=== PATIENT | female | born 1945 | race African-American/Black ===

== ENCOUNTER 2016-11-18 23:45 | Emergency (ER) | payer MEDICARE, MEDICAID ==
[~2016-11-18 23:45] MED LIST: Sodium Chloride 0.9% 100 ML BAG ONE
[2016-11-19 00:18] LABS: #Eosinphils 0.7 thou/uL (0.0-0.7); #Lymphocytes 1.4 thou/uL (1.20-3.40); #Monocytes 0.5 thou/uL (0.11-0.59); #Neutrophils 5.3 thou/uL (1.40-6.50); %Basophils 0.6 % (0.0-1.0); %Eosinophils 9.3 % (0.0-10.0); %Monocytes 6.4 % (0.0-10.0); %Neutrophils 65.7 % (42.0-75.0); Hemoglobin 9.8 g/dL (12.0-16.0); Mean Corpuscular HGB CONC 31.5 g/dL (32.0-36.0); Mean Corpuscular Hemoglobin 30.8 pg (27.0-31.0); Mean Corpuscular Volume 97.6 fl (81.0-99.0); Mean Platelet Volume 6.6 fL (7.4-10.4); Platelet Count 277 thou/uL (130-400); RBC Distribution Width 13.6 % (11.5-14.5)
[2016-11-19 00:36] LABS: ALT (SGPT) Less than 6 U/L (0-55); AST (SGOT) 10 U/L (5-34); Albumin 3.4 g/dL (3.4-4.8); Alkaline Phosphatase 64 U/L (40-150); BUN (Urea Nitrogen) 25 mg/dL (9.8-20.1); Bilirubin, Total Less than 0.3 mg/dL (0.2-1.2); Calc. Creatinine Clearance 0 mL/min (70-130); Calcium 9.3 mg/dL (7.8-10.44); Carbon Dioxide 22 mmol/L (23-31); Estimated GFR-MDRD 44; Globulin 3.4 g/dL (2.4-3.5); Glucose 140 mg/dL (80-115); Protein, Total 6.8 g/dL (5.8-8.1)
[2016-11-19] MEDS ORDERED: Nitroglycerin 2% Ointment 1 INCH/1 GM Packet ONE (00:37)
[2016-11-19] MEDS ORDERED: Albuterol Sulfate 2.5 mg/0.5 ml Neb ONE ×2 (00:37→00:41)
[2016-11-19 00:38] LABS: CKMB 1.4 ng/mL (0-6.6); Troponin I Less than 0.010 ng/mL (< 0.028)
[2016-11-19 00:46] LABS: Chloride 112 mmol/L (98-107); Potassium 4.7 mmol/L (3.5-5.1); Sodium 144 mmol/L (136-145)
[2016-11-19 00:47] LABS: Anion Gap 15 mmol/L (10-20)
[2016-11-19] MEDS ORDERED: cefTRIAXone\\ROCEPHIN 1 GM VIAL ONE (01:06)
--- NOTE | 2016-11-19 08:02 | RAD ---
AP CHEST: History: 71-year-old female with history of dyspnea. Date: 11-19-16 Comparison: 09-18-15 FINDINGS: AP view chest demonstrates the lungs to be well aerated. No evidence of active intrathoracic diseas e seen. No evidence of effusions, pneumonia, or pneumothorax seen. IMPRESSION: Unremarkable AP chest. POS: [facility]
== END 2016-11-19 02:26 | disposition home or self-care (01) ==
LOC: MADERS 23:45
DX: J45.901 Unspecified asthma with (acute) exacerbation (principal); E11.9 Type 2 diabetes mellitus without complications; J44.9 Chronic obstructive pulmonary disease, unspecified; E78.5 Hyperlipidemia, unspecified; E66.9 Obesity, unspecified; I50.9 Heart failure, unspecified; I11.0 Hypertensive heart disease with heart failure; Z87.891 Personal history of nicotine dependence
CPT/HCPCS: 71010; 80053; 82553; 83880; 84484; 85025; 93005; 94640; 94644; 96365; J0696; J7050; J7611; J7620

== ENCOUNTER 2016-12-03 21:20 | Emergency (ER) | payer MEDICARE, MEDICAID ==
[~2016-12-03 21:20] MED LIST changes: +Sodium Chloride 0.9% 1,000 ML BAG ONE
[2016-12-03 22:08] LABS: #Eosinphils 0.1 thou/uL (0.0-0.7); #Lymphocytes 1.2 thou/uL (1.20-3.40); #Monocytes 0.9 thou/uL (0.11-0.59); #Neutrophils 12.2 thou/uL (1.40-6.50); %Basophils 0.3 % (0.0-1.0); %Eosinophils 0.5 % (0.0-10.0); %Lymphocytes 8.2 % (21.0-51.0); %Monocytes 6.1 % (0.0-10.0); Hemoglobin 12.3 g/dL (12.0-16.0); Mean Corpuscular HGB CONC 32.4 g/dL (32.0-36.0); Mean Corpuscular Hemoglobin 31.1 pg (27.0-31.0); Mean Platelet Volume 6.7 fL (7.4-10.4); Platelet Count 357 thou/uL (130-400); RBC Distribution Width 13.5 % (11.5-14.5); Red Blood Cell (RBC) Count 3.94 mill/uL (4.20-5.40); White Blood Cell (WBC) Count 14.4 thou/uL (4.8-10.8)
[2016-12-03 22:28] LABS: ALT (SGPT) 9 U/L (0-55); AST (SGOT) 13 U/L (5-34); Alkaline Phosphatase 73 U/L (40-150); Anion Gap 18 mmol/L (10-20); BUN (Urea Nitrogen) 59 mg/dL (9.8-20.1); Bilirubin, Total 0.3 mg/dL (0.2-1.2); CKMB 2.1 ng/mL (0-6.6); Calc. Creatinine Clearance 0 mL/min (70-130); Calcium 9.3 mg/dL (7.8-10.44); Carbon Dioxide 17 mmol/L (23-31); Chloride 101 mmol/L (98-107); Estimated GFR-MDRD 11; Globulin 3.9 g/dL (2.4-3.5); Glucose 163 mg/dL (80-115); Potassium 4.4 mmol/L (3.5-5.1); Protein, Total 7.9 g/dL (5.8-8.1); Sodium 132 mmol/L (136-145)
--- NOTE | 2016-12-03 22:33 | RAD ---
PORTABLE AP CHEST X-RAY 12/03/16 HISTORY: Chest pain. COMPARISON: 11/19/16. FINDINGS: Again noted is elevation of the left hemidiaphragm. Gas density seen beneath the left hemidiaphragm is most likely related to gas within the stomach. There is atelectasis present at the left lung base . The right lung is clear. Cardiac silhouette is magnified by projection but is at the upper limits of normal to borderline enlarged; however, the cardiac silhouette is attenuated by the patient rotat ion. No other interval change. IMPRESSION: 1. Stable mild elevation left hemidiaphragm with atelectasis at the left lung base. 2. No acute cardiopulmonary process. POS: [facility]
[2016-12-03 23:17] LABS: Blood, Urine Negative (Negative); Clarity Hazy (Clear); Glucose, Urine (Dipstick) Negative (Negative); Icto Negative (Negative); Leukocyte Small (Negative); Nitrite Negative (Negative); Protein, Urine (Dipstick) 100 mg/dL (Neg-Trace); Specific Gravity, Urine 1.025 (1.005-1.030); Urobilinogen 0.2 mg/dL (0.2-1.0); pH, Urine 5.5 (5.0-9.0)
[2016-12-03 23:18] LABS: Bilirubin Negative (Negative)
[2016-12-03] MEDS ORDERED: Ondansetron HCl/PF 4 MG/2 ML Vial ONE (23:20)
[2016-12-03 23:22] LABS: Bacteria/HPF Rare-Few HPF (None Seen); RBC/HPF 0-3 HPF (0-3)
[2016-12-03 23:23] LABS: Crystals/HPF 2+ AMORPH URATES HPF (Negative); Hyaline Casts/LPF 7-10 HYALINE CAST LPF (0-3 Hyaline); Other Casts/LPF 0-3 FINELY GRAN LPF (0-3 Hyaline)
[2016-12-03] MEDS ORDERED: cefTRIAXone\\ROCEPHIN 1 GM VIAL ONE (23:37)
== END 2016-12-03 23:52 | disposition short-term general hospital (02) ==
LOC: MADERS 21:20
DX: E86.0 Dehydration (principal); N28.9 Disorder of kidney and ureter, unspecified; N39.0 Urinary tract infection, site not specified; K56.60 Unspecified intestinal obstruction; E78.5 Hyperlipidemia, unspecified; E78.00 Pure hypercholesterolemia, unspecified; E11.9 Type 2 diabetes mellitus without complications; J45.909 Unspecified asthma, uncomplicated; J44.9 Chronic obstructive pulmonary disease, unspecified; I11.0 Hypertensive heart disease with heart failure; I50.9 Heart failure, unspecified; Z87.891 Personal history of nicotine dependence; Z79.4 Long term (current) use of insulin; Z79.899 Other long term (current) drug therapy
CPT/HCPCS: 51701; 71010; 80053; 81003; 81015; 82553; 84484; 85025; 87040; 87086; 93005; 94640; 96361; 96374; 96375; A4353; J0696; J2405; J7050; J7620

== ENCOUNTER 2016-12-30 11:30 | Outpatient (CLI) | payer MEDICARE, MEDICAID ==
[2016-12-30 12:25] LABS: #Eosinphils 0.2 thou/uL (0.0-0.7); #Lymphocytes 1.5 thou/uL (1.20-3.40); #Monocytes 0.5 thou/uL (0.11-0.59); #Neutrophils 6.7 thou/uL (1.40-6.50); %Basophils 0.4 % (0.0-1.0); %Eosinophils 1.8 % (0.0-10.0); %Lymphocytes 16.8 % (21.0-51.0); %Monocytes 5.9 % (0.0-10.0); %Neutrophils 75.2 % (42.0-75.0); Hemoglobin 10.3 g/dL (12.0-16.0); Mean Corpuscular HGB CONC 31.2 g/dL (32.0-36.0); Mean Corpuscular Hemoglobin 31.1 pg (27.0-31.0); Mean Corpuscular Volume 99.6 fl (81.0-99.0); Mean Platelet Volume 6.6 fL (7.4-10.4); Platelet Count 325 thou/uL (130-400); RBC Distribution Width 13.7 % (11.5-14.5); Red Blood Cell (RBC) Count 3.31 mill/uL (4.20-5.40); White Blood Cell (WBC) Count 8.9 thou/uL (4.8-10.8)
[2016-12-30 12:31] LABS: Hemoglobin A1c 4.9 % (4.0-6.0)
[2016-12-30 12:36] LABS: ALT (SGPT) 6 U/L (0-55); AST (SGOT) 10 U/L (5-34); Albumin 3.9 g/dL (3.4-4.8); Alkaline Phosphatase 66 U/L (40-150); Anion Gap 13 mmol/L (10-20); BUN (Urea Nitrogen) 17 mg/dL (9.8-20.1); Bilirubin, Total 0.3 mg/dL (0.2-1.2); Calc. Creatinine Clearance 0 mL/min (70-130); Calcium 9.7 mg/dL (7.8-10.44); Carbon Dioxide 26 mmol/L (23-31); Chloride 105 mmol/L (98-107); Estimated GFR-MDRD 39; Globulin 3.3 g/dL (2.4-3.5); Glucose 93 mg/dL (80-115); Potassium 4.4 mmol/L (3.5-5.1); Protein, Total 7.2 g/dL (5.8-8.1); Sodium 140 mmol/L (136-145)
== END 2016-12-30 11:31 ==
LOC: MADLABBHPM 11:30
PROVIDERS: ATTEND Family Medicine
DX: E11.8 Type 2 diabetes mellitus with unspecified complications (principal); D63.8 Anemia in other chronic diseases classified elsewhere
CPT/HCPCS: 36415; 80053; 83036; 85025

== ENCOUNTER 2017-09-26 16:51 | Outpatient (CLI) | payer MEDICARE, MEDICAID ==
--- NOTE | 2017-09-26 17:38 | RAD ---
RIGHT HIP: 09/26/17 HISTORY: Right hip pain. The exam is suboptimal. The femoral neck is not adequately positioned. There are prominent degenerati ve changes at the hip joint with joint narrowing and articular sclerosis and subchondral cystic saldaña es on both sides of the joint. No definite fracture seen on this suboptimal study. IMPRESSION: 1. Suboptimal exam due to abnormal positioning. If there is concern of hip fracture, recommend r epeat exam with adequate positioning of the femoral neck. 2. Prominent degenerative changes are noted. POS: [facility]
[2017-09-26 17:39] LABS: #Eosinphils 0.2 thou/uL (0.0-0.7); #Lymphocytes 1.6 thou/uL (1.20-3.40); #Monocytes 0.6 thou/uL (0.11-0.59); #Neutrophils 7.2 thou/uL (1.40-6.50); %Basophils 0.4 % (0.0-1.0); %Eosinophils 1.9 % (0.0-10.0); %Lymphocytes 16.6 % (21.0-51.0); %Neutrophils 75.2 % (42.0-75.0); Hemoglobin 11.3 g/dL (12.0-16.0); Mean Corpuscular HGB CONC 31.4 g/dL (32.0-36.0); Mean Corpuscular Hemoglobin 31.6 pg (27.0-31.0); Mean Corpuscular Volume 100.4 fl (81.0-99.0); Mean Platelet Volume 5.8 fL (7.4-10.4); Platelet Count 328 thou/uL (130-400); RBC Distribution Width 14.1 % (11.5-14.5); Red Blood Cell (RBC) Count 3.57 mill/uL (4.20-5.40); White Blood Cell (WBC) Count 9.5 thou/uL (4.8-10.8)
[2017-09-26 17:50] LABS: ALT (SGPT) 7 U/L (8-55); AST (SGOT) 11 U/L (5-34); Albumin 4.2 g/dL (3.4-4.8); Alkaline Phosphatase 68 U/L (40-150); Anion Gap 19 mmol/L (10-20); BUN (Urea Nitrogen) 33 mg/dL (9.8-20.1); Bilirubin, Total 0.3 mg/dL (0.2-1.2); Calc. Creatinine Clearance 0 mL/min (70-130); Calcium 10.2 mg/dL (7.8-10.44); Carbon Dioxide 19 mmol/L (23-31); Cardiac Risk 3.5 (Less than 4.5); Chloride 106 mmol/L (98-107); Cholesterol 161 mg/dl (< 200 Desired); Estimated GFR-MDRD 40; Globulin 4.5 g/dL (2.4-3.5); Glucose 119 mg/dL (83-110); HDL Cholesterol 46 mg/dL (>60 Neg Risk); LDL Cholesterol, Calculated 94 mg/dL; Potassium 4.5 mmol/L (3.5-5.1); Protein, Total 8.7 g/dL (6.0-8.3); Sodium 139 mmol/L (136-145); Triglycerides 104 mg/dL (Less than 150); Uric Acid 7.8 mg/dL (2.6-6.0)
[2017-09-26 20:15] LABS: Hemoglobin A1c 5.1 % (4.0-6.0)
== END 2017-09-26 16:52 | disposition home or self-care (01) ==
LOC: MADRAD 16:51
PROVIDERS: ATTEND Family Medicine
DX: M25.551 Pain in right hip (principal); M19.90 Unspecified osteoarthritis, unspecified site; I10 Essential (primary) hypertension; E11.8 Type 2 diabetes mellitus with unspecified complications; E78.5 Hyperlipidemia, unspecified; M16.11 Unilateral primary osteoarthritis, right hip
CPT/HCPCS: 36415; 80053; 80061; 83036; 84550; 85025

== ENCOUNTER 2018-03-17 11:45 | Emergency (ER) | payer MEDICARE, MEDICAID ==
[2018-03-17] MEDS ORDERED: Dexamethasone 4 MG TAB ONE (11:58)
--- NOTE | 2018-03-17 12:27 | RAD ---
AP VIEW CHEST: Date: 03/17/18 INDICATION: History of dyspnea. IMPRESSION: Neck soft tissues limit evaluation of the lung apices. Otherwise lungs appear clear. No definite pleu ral effusion is evident. Heart size accentuated by exam technique. Previously seen right subclavian c entral venous catheter on comparison dated 12/04/16 is no longer present. No acute osseous abnormalit y noted. POS: [facility]
[2018-03-17 12:35] LABS: #Eosinphils 0.3 thou/uL (0.0-0.7); #Lymphocytes 1.5 thou/uL (1.20-3.40); #Monocytes 0.5 thou/uL (0.11-0.59); %Basophils 0.5 % (0.0-1.0); %Eosinophils 3.6 % (0.0-10.0); %Lymphocytes 20.8 % (21.0-51.0); %Monocytes 6.3 % (0.0-10.0); %Neutrophils 68.8 % (42.0-75.0); Hemoglobin 10.6 g/dL (12.0-16.0); Mean Corpuscular HGB CONC 31.1 g/dL (32.0-36.0); Mean Corpuscular Hemoglobin 30.3 pg (27.0-31.0); Mean Corpuscular Volume 97.6 fL (78.0-98.0); Mean Platelet Volume 4.9 fL (7.4-10.4); Platelet Count 307 thou/uL (130-400); RBC Distribution Width 13.3 % (11.5-14.5); Red Blood Cell (RBC) Count 3.48 mill/uL (4.20-5.40); White Blood Cell (WBC) Count 7.2 thou/uL (4.8-10.8)
[2018-03-17 12:52] LABS: ALT (SGPT) Less than 7 U/L (8-55); AST (SGOT) 10 U/L (5-34); Albumin 3.7 g/dL (3.4-4.8); Alkaline Phosphatase 61 U/L (40-150); Anion Gap 14 mmol/L (10-20); BUN (Urea Nitrogen) 25 mg/dL (9.8-20.1); Bilirubin, Total 0.3 mg/dL (0.2-1.2); Calc. Creatinine Clearance 0 mL/min (70-130); Calcium 9.2 mg/dL (7.8-10.44); Carbon Dioxide 22 mmol/L (23-31); Chloride 110 mmol/L (98-107); Estimated GFR-MDRD 56; Globulin 3.7 g/dL (2.4-3.5); Glucose 132 mg/dL (83-110); Potassium 4.4 mmol/L (3.5-5.1); Protein, Total 7.4 g/dL (6.0-8.3); Sodium 142 mmol/L (136-145)
[2018-03-17 12:53] LABS: CKMB 0.7 ng/mL (0-6.6); Troponin I 0.013 ng/mL (< 0.028)
== END 2018-03-17 13:20 | disposition home or self-care (01) ==
LOC: MADERS 11:45
DX: J44.1 Chronic obstructive pulmonary disease with (acute) exacerbation (principal); E11.9 Type 2 diabetes mellitus without complications; E78.5 Hyperlipidemia, unspecified; I50.9 Heart failure, unspecified; I11.0 Hypertensive heart disease with heart failure; E66.9 Obesity, unspecified; Z87.891 Personal history of nicotine dependence; Z79.899 Other long term (current) drug therapy
CPT/HCPCS: 36415; 71045; 80053; 82553; 83880; 84484; 85025; 93005; J7620; J8540

== ENCOUNTER 2018-05-19 18:24 | Emergency (ER) | payer MEDICARE, MEDICAID ==
[2018-05-19 19:31] LABS: ALT (SGPT) 8 U/L (8-55); AST (SGOT) 13 U/L (5-34); Albumin 4.1 g/dL (3.4-4.8); Alkaline Phosphatase 76 U/L (40-150); Anion Gap 16 mmol/L (10-20); BUN (Urea Nitrogen) 45 mg/dL (9.8-20.1); Bilirubin, Total 0.7 mg/dL (0.2-1.2); Calc. Creatinine Clearance 0 mL/min (70-130); Calcium 10.3 mg/dL (7.8-10.44); Carbon Dioxide 18 mmol/L (23-31); Chloride 106 mmol/L (98-107); Estimated GFR-MDRD 33; Globulin 4.5 g/dL (2.4-3.5); Glucose 176 mg/dL (83-110); Lipase 19 U/L (8-78); Potassium 5.1 mmol/L (3.5-5.1); Protein, Total 8.6 g/dL (6.0-8.3); Sodium 135 mmol/L (136-145)
[2018-05-19 19:38] LABS: Band 15 % (5-11); Eosinophils 2 % (0-10); Hemoglobin 12.1 g/dL (12.0-16.0); Lymphocytes 8 % (21-51); MDiff Complete? YES; Mean Corpuscular HGB CONC 31.8 g/dL (32.0-36.0); Mean Corpuscular Volume 100.4 fL (78.0-98.0); Mean Platelet Volume 5.7 fL (7.4-10.4); Monocytes 3 % (0-10); Neutrophil 72 % (42-75); PLT Morphology Comment Appears Adequate; Platelet Count 311 thou/uL (130-400); RBC Distribution Width 12.8 % (11.5-14.5); Red Blood Cell (RBC) Count 3.78 mill/uL (4.20-5.40); White Blood Cell (WBC) Count 13.7 thou/uL (4.8-10.8)
[2018-05-19 20:48] LABS: Bilirubin Small (Negative); Blood, Urine Negative (Negative); Glucose, Urine (Dipstick) Negative (Negative); Leukocyte Negative (Negative); Nitrite Negative (Negative); Protein, Urine (Dipstick) Trace mg/dL (Neg-Trace); Urobilinogen 0.2 mg/dL (0.2-1.0)
--- NOTE | 2018-05-19 21:02 | CT ---
CT OF THE ABDOMEN AND PELVIS WITH CONTRAST: 05/19/18 COMPARISON: 11/26/16 HISTORY: Possible colostomy obstruction after eating peanuts yesterday. Abdominal pain and distention. TECHNIQUE: Multiple contiguous axial images were obtained in a CT of the abdomen and pelvis with contrast. Coron al reformats were performed. FINDINGS: The patient is status post cholecystectomy. There is a stable cyst in the left kidney. The liver, rig ht kidney, adrenal glands, spleen, and pancreas are unremarkable. No free air or free fluid are seen in the abdomen or pelvis. Stranding changes are seen surrounding t he patient's ostomy in the right lower quadrant of the abdomen. A feces sign is seen within the small bowel within the ostomy. There are dilated loops of small bowel throughout the abdomen which extend all the way to the patient's ostomy. There are calcifications in the uterus which may represent fibroids. Atherosclerotic calcifications a re seen in the aorta. No abdominal or pelvic lymphadenopathy are seen. Atelectasis is see in both lung bases. Degenerative changes are seen in the spine. IMPRESSION: There is stranding change and fecalization of the small bowel within the patient's right lower quadra nt ostomy. This could represent an obstruction of the ostomy and small bowel obstruction. POS: [facility]
[2018-05-19 21:07] LABS: Clarity Hazy (Clear)
== END 2018-05-19 22:43 | disposition short-term general hospital (02) ==
LOC: MADERS 18:24
DX: K94.03 Colostomy malfunction (principal); K56.609 Unspecified intestinal obstruction, unspecified as to partial versus complete obstruction; I11.0 Hypertensive heart disease with heart failure; I50.9 Heart failure, unspecified; E11.9 Type 2 diabetes mellitus without complications; E66.9 Obesity, unspecified; Z87.891 Personal history of nicotine dependence; Z79.899 Other long term (current) drug therapy
CPT/HCPCS: 51701; 74177; 80053; 81003; 82271; 83605; 83690; 85025; 94760; 96360; A4353

== ENCOUNTER 2018-05-28 06:35 | Emergency (ER) | payer MEDICARE, MEDICAID ==
[2018-05-28 07:32] LABS: #Eosinphils 0.2 thou/uL (0.0-0.7); #Lymphocytes 1.3 thou/uL (1.20-3.40); #Monocytes 0.7 thou/uL (0.11-0.59); #Neutrophils 10.5 thou/uL (1.40-6.50); %Basophils 0.4 % (0.0-1.0); %Eosinophils 1.4 % (0.0-10.0); %Lymphocytes 10.1 % (21.0-51.0); %Monocytes 5.6 % (0.0-10.0); %Neutrophils 82.6 % (42.0-75.0); Mean Corpuscular HGB CONC 31.8 g/dL (32.0-36.0); Mean Corpuscular Hemoglobin 31.6 pg (27.0-31.0); Mean Corpuscular Volume 99.5 fL (78.0-98.0); Mean Platelet Volume 5.5 fL (7.4-10.4); Platelet Count 331 thou/uL (130-400); RBC Distribution Width 13.9 % (11.5-14.5); Red Blood Cell (RBC) Count 3.17 mill/uL (4.20-5.40); White Blood Cell (WBC) Count 12.7 thou/uL (4.8-10.8)
[2018-05-28 07:50] LABS: ALT (SGPT) 14 U/L (8-55); AST (SGOT) 24 U/L (5-34); Albumin 3.5 g/dL (3.4-4.8); Alkaline Phosphatase 56 U/L (40-150); Anion Gap 10 mmol/L (10-20); BUN (Urea Nitrogen) 7 mg/dL (9.8-20.1); Bilirubin, Total 0.5 mg/dL (0.2-1.2); CK (CPK) 91 U/L (29-168); Calc. Creatinine Clearance 0 mL/min (70-130); Calcium 8.7 mg/dL (7.8-10.44); Carbon Dioxide 26 mmol/L (23-31); Chloride 108 mmol/L (98-107); Estimated GFR-MDRD 53; Globulin 3.7 g/dL (2.4-3.5); Glucose 152 mg/dL (83-110); Potassium 3.5 mmol/L (3.5-5.1); Protein, Total 7.2 g/dL (6.0-8.3); Sodium 140 mmol/L (136-145)
[2018-05-28 07:50] LABS: Bilirubin Negative (Negative); Blood, Urine Negative (Negative); Clarity Clear (Clear); Glucose, Urine (Dipstick) Negative (Negative); Leukocyte Negative (Negative); Nitrite Negative (Negative); Protein, Urine (Dipstick) Trace mg/dL (Neg-Trace); Urobilinogen 0.2 mg/dL (0.2-1.0)
--- NOTE | 2018-05-28 07:51 | CT ---
NONCONTRAST HEAD CT: COMPARISON: 11/25/05. TECHNIQUE: Noncontrast head CT is performed from the skull base to the skull vertex. FINDINGS: The examination is limited by motion degradation. No parenchymal hemorrhage. No extraaxial hematoma . No midline shift. Basilar cisterns are patent. Age-appropriate brain volume. Cortical ramos-whit e matter differentiation is preserved. The ventricles and sulci are patent and symmetric. Calvarium is intact. Adequate aeration of the sinuses and mastoid air cells. Cavernous carotid athe rosclerosis is noted. IMPRESSION: Limited evaluation due to motion degradation. No acute intracranial process. POS: [facility]
[2018-05-28 07:52] LABS: Troponin I Less than 0.010 ng/mL (< 0.028)
--- NOTE | 2018-05-28 07:54 | RAD ---
PORTABLE UPRIGHT FRONTAL CHEST RADIOGRAPH: Date: 05/28/18 COMPARISON: 03/17/18. HISTORY: Syncope. FINDINGS: Mild diffuse increased linear interstitial density with pulmonary hyperinflation noted, stable. Stabl e atherosclerotic calcification of the aortic arch. No pneumothorax, pleural fluid, focal consolidati on, or alveolar edema. IMPRESSION: No acute findings. POS: [facility]
[2018-05-28 08:03] LABS: Amphetamine Not Detected (NotDetected); Barbiturates Screen Not Detected (NotDetected); Benzodiazepine Screen Not Detected (NotDetected); Cocaine Metabolite Screen Not Detected (NotDetected); Medtox Control Line Valid? VALID (VALID); Methadone Not Detected (NotDetected); Methamphetamine Not Detected (NotDetected); Opiate Screen Not Detected (NotDetected); Oxycodone Screen Not Detected (NotDetected); Phencyclidine (PCP) Not Detected (NotDetected); THC/Cannabinoid Screen Not Detected (NotDetected); Tricyclic Screen Not Detected (NotDetected)
== END 2018-05-28 09:40 | disposition short-term general hospital (02) ==
LOC: MADERS 06:35
DX: R55 Syncope and collapse (principal); R09.02 Hypoxemia; E11.9 Type 2 diabetes mellitus without complications; I11.0 Hypertensive heart disease with heart failure; I50.9 Heart failure, unspecified; Z87.891 Personal history of nicotine dependence; Z79.899 Other long term (current) drug therapy
CPT/HCPCS: 36416; 70450; 71045; 80053; 80306; 81003; 82553; 83880; 84484; 85025; 85379; 93005

== ENCOUNTER 2019-03-12 11:10 | Emergency (ER) | payer MEDICARE, MEDICAID ==
[~2019-03-12 11:10] MED LIST changes: -Sodium Chloride 0.9% 100 ML BAG ONE
[2019-03-12 12:26] LABS: #Basophils 0.1 thou/uL (0.0-0.2); #Eosinphils 0.1 thou/uL (0.0-0.7); #Lymphocytes 1.4 thou/uL (1.20-3.40); #Monocytes 0.8 thou/uL (0.11-0.59); #Neutrophils 12.6 thou/uL (1.40-6.50); %Basophils 0.6 % (0.0-1.0); %Eosinophils 0.8 % (0.0-10.0); %Lymphocytes 9.4 % (21.0-51.0); %Neutrophils 84.3 % (42.0-75.0); Hemoglobin 9.6 g/dL (12.0-16.0); Mean Corpuscular HGB CONC 30.1 g/dL (32.0-36.0); Mean Corpuscular Hemoglobin 30.2 pg (27.0-31.0); Mean Corpuscular Volume 100.6 fL (78.0-98.0); Mean Platelet Volume 4.9 fL (7.4-10.4); Platelet Count 280 thou/uL (130-400); RBC Distribution Width 14.8 % (11.5-14.5); Red Blood Cell (RBC) Count 3.19 mill/uL (4.20-5.40)
[2019-03-12 12:34] LABS: Bilirubin Negative (Negative); Blood, Urine Negative (Negative); Clarity Clear (Clear); Glucose, Urine (Dipstick) Negative (Negative); Leukocyte Negative (Negative); Nitrite Negative (Negative); Protein, Urine (Dipstick) Negative (Neg-Trace); Urobilinogen 0.2 mg/dL (Less than 2)
[2019-03-12 12:41] LABS: ALT (SGPT) 7 U/L (8-55); AST (SGOT) 8 U/L (5-34); Albumin 3.8 g/dL (3.4-4.8); Alkaline Phosphatase 70 U/L (40-150); Anion Gap 13 mmol/L (10-20); BUN (Urea Nitrogen) 31 mg/dL (9.8-20.1); Bilirubin, Total 0.4 mg/dL (0.2-1.2); Calc. Creatinine Clearance 0 mL/min (70-130); Calcium 8.9 mg/dL (7.8-10.44); Carbon Dioxide 19 mmol/L (23-31); Chloride 112 mmol/L (98-107); Estimated GFR-MDRD 36; Globulin 3.8 g/dL (2.4-3.5); Glucose 119 mg/dL (83-110); Potassium 5.5 mmol/L (3.5-5.1); Protein, Total 7.6 g/dL (6.0-8.3); Sodium 138 mmol/L (136-145)
[2019-03-12] MEDS ORDERED: Acetaminophen 500 MG TAB ONE (12:57)
[2019-03-12] MEDS ORDERED: Dextrose 50% Abboject 50 ML SYRINGE ONE (13:09)
--- NOTE | 2019-03-12 13:52 | RAD ---
EXAM: Single view of the chest HISTORY: Fever and weakness COMPARISON: 05/28/2018 FINDINGS: Single view of the chest shows a normal sized cardiomediastinal silhouette. There is no analisa dence of consolidation, mass, or pleural effusion. Degenerative changes are seen in the spine. IMPRESSION: No evidence of acute cardiopulmonary disease
== END 2019-03-12 18:15 | disposition short-term general hospital (02) ==
LOC: MADERS 11:10
DX: E87.5 Hyperkalemia (principal); R50.9 Fever, unspecified; I11.0 Hypertensive heart disease with heart failure; E66.9 Obesity, unspecified; I50.9 Heart failure, unspecified; E11.9 Type 2 diabetes mellitus without complications; E78.5 Hyperlipidemia, unspecified; J44.9 Chronic obstructive pulmonary disease, unspecified; Z87.891 Personal history of nicotine dependence; Z79.899 Other long term (current) drug therapy; Z79.51 Long term (current) use of inhaled steroids
CPT/HCPCS: 36415; 71045; 80053; 81003; 83605; 83880; 84484; 85025; 87040; 87086; 93005; 96374; 96375; A4353; J7050

== ENCOUNTER 2019-10-04 10:56 | Emergency (ER) | payer MEDICARE, MEDICAID ==
[2019-10-04 12:38] LABS: #Basophils 0.1 thou/uL (0.0-0.2); #Eosinphils 0.2 thou/uL (0.0-0.7); #Lymphocytes 1.7 thou/uL (1.20-3.40); #Monocytes 0.7 thou/uL (0.11-0.59); #Neutrophils 6.6 thou/uL (1.40-6.50); %Basophils 0.6 % (0.0-1.0); %Eosinophils 2.5 % (0.0-10.0); %Lymphocytes 18.7 % (21.0-51.0); %Monocytes 7.5 % (0.0-10.0); %Neutrophils 70.8 % (42.0-75.0); Hemoglobin 9.9 g/dL (12.0-16.0); MDiff Complete? YES; Macrocytosis SLIGHT = 6-15 cells (100X) (0-5/hpf); Mean Corpuscular HGB CONC 28.6 g/dL (32.0-36.0); Mean Corpuscular Hemoglobin 29.6 pg (27.0-31.0); Mean Corpuscular Volume 103.5 fL (78.0-98.0); Mean Platelet Volume 6.3 fL (7.4-10.4); Platelet Count 268 thou/uL (130-400); RBC Distribution Width 14.5 % (11.5-14.5); Red Blood Cell (RBC) Count 3.34 mill/uL (4.20-5.40); White Blood Cell (WBC) Count 9.3 thou/uL (4.8-10.8)
--- NOTE | 2019-10-04 12:49 | RAD ---
PORTABLE CHEST: HISTORY: Dyspnea. COMPARISON: 03/12/2019. FINDINGS: Limited evaluation due to portable technique and soft tissue attenuation. There is a suggestion of a patchy infiltrate in the left lower lung, although this may be overlying shadows. Vascular intersti tial markings are accentuated by the decreased exposure and soft tissue attenuation. IMPRESSION: Suboptimal exam due to patient body habitus and portable technique. Recommend PA and lateral views o f the chest to better evaluate. A left basilar infiltrate is not excluded. POS: [facility]
[2019-10-04 12:55] LABS: ALT (SGPT) Less than 7 U/L (8-55); AST (SGOT) 5 U/L (5-34); Albumin 3.8 g/dL (3.4-4.8); Alkaline Phosphatase 70 U/L (40-110); Anion Gap 15 mmol/L (10-20); BUN (Urea Nitrogen) 68 mg/dL (9.8-20.1); Bilirubin, Total 0.3 mg/dL (0.2-1.2); Calc. Creatinine Clearance 0 mL/min (70-130); Carbon Dioxide 14 mmol/L (23-31); Chloride 115 mmol/L (98-107); Estimated GFR-MDRD 14; Globulin 4.3 g/dL (2.4-3.5); Glucose 104 mg/dL (83-110); Potassium 6.1 mmol/L (3.5-5.1); Protein, Total 8.1 g/dL (6.0-8.3); Sodium 138 mmol/L (136-145)
[2019-10-04] MEDS ORDERED: cefTRIAXone\\ROCEPHIN 1 GM VIAL ONE (14:22)
[2019-10-04] MEDS ORDERED: Azithromycin 500 MG VIAL ONE (14:22)
[2019-10-04] MEDS ORDERED: methylPREDNISolone Sod Succ/PF 125 MG/2 ML VIAL ONE (14:22)
[2019-10-04] MEDS ORDERED: Sodium Chloride 0.9% 100 ML ONE (14:23)
[2019-10-04] MEDS ORDERED: Sodium Chloride 0.9% 250 ML 250 ML ONE (14:23)
[2019-10-04] MEDS ORDERED: Sodium Chloride 0.9% 1,000 ML ONE (14:48)
[2019-10-04] MEDS ORDERED: Albuterol Sulfate 2.5 mg/3 ml Neb ONE (14:48)
[2019-10-04 15:20] LABS: Anion Gap 15 mmol/L (10-20); BUN (Urea Nitrogen) 71 mg/dL (9.8-20.1); Calc. Creatinine Clearance 0 mL/min (70-130); Calcium 9.1 mg/dL (7.8-10.44); Carbon Dioxide 14 mmol/L (23-31); Chloride 116 mmol/L (98-107); Estimated GFR-MDRD 15; Glucose 99 mg/dL (83-110); Sodium 139 mmol/L (136-145)
== END 2019-10-04 16:20 | disposition short-term general hospital (02) ==
LOC: MADERS 10:56
DX: J44.1 Chronic obstructive pulmonary disease with (acute) exacerbation (principal); N17.9 Acute kidney failure, unspecified; E87.5 Hyperkalemia; I11.0 Hypertensive heart disease with heart failure; I50.9 Heart failure, unspecified; E11.9 Type 2 diabetes mellitus without complications; E78.5 Hyperlipidemia, unspecified; E78.00 Pure hypercholesterolemia, unspecified; E66.9 Obesity, unspecified; Z87.891 Personal history of nicotine dependence; Z79.899 Other long term (current) drug therapy; Z79.51 Long term (current) use of inhaled steroids
CPT/HCPCS: 36415; 71045; 80053; 83605; 83880; 84484; 85025; 87040; 87149; 93005; 94640; 94760; 96365; 96367; 96375; J0456; J0696; J2930; J3490; J7050; J7611; J7620

== ENCOUNTER 2019-10-11 04:53 | Emergency (ER) | payer MEDICARE, MEDICAID ==
[2019-10-11] MEDS ORDERED: Ondansetron ODT 4 MG TAB ONE (05:39)
[2019-10-11 06:07] LABS: #Eosinphils 0.5 thou/uL (0.0-0.7); #Lymphocytes 1.2 thou/uL (1.20-3.40); #Monocytes 0.5 thou/uL (0.11-0.59); #Neutrophils 9.1 thou/uL (1.40-6.50); %Basophils 0.3 % (0.0-1.0); %Eosinophils 4.2 % (0.0-10.0); %Lymphocytes 10.6 % (21.0-51.0); %Monocytes 4.7 % (0.0-10.0); %Neutrophils 80.2 % (42.0-75.0); Hemoglobin 9.7 g/dL (12.0-16.0); Mean Corpuscular HGB CONC 29.3 g/dL (32.0-36.0); Mean Corpuscular Hemoglobin 29.3 pg (27.0-31.0); Mean Corpuscular Volume 100.1 fL (78.0-98.0); Mean Platelet Volume 6.2 fL (7.4-10.4); Platelet Count 238 thou/uL (130-400); RBC Distribution Width 14.5 % (11.5-14.5); Red Blood Cell (RBC) Count 3.32 mill/uL (4.20-5.40); White Blood Cell (WBC) Count 11.4 thou/uL (4.8-10.8)
[2019-10-11 06:25] LABS: ALT (SGPT) 7 U/L (8-55); AST (SGOT) 9 U/L (5-34); Albumin 3.6 g/dL (3.4-4.8); Alkaline Phosphatase 67 U/L (40-110); Anion Gap 13 mmol/L (10-20); BUN (Urea Nitrogen) 18 mg/dL (9.8-20.1); Bilirubin, Total 0.4 mg/dL (0.2-1.2); Calc. Creatinine Clearance 0 mL/min (70-130); Calcium 8.8 mg/dL (7.8-10.44); Carbon Dioxide 19 mmol/L (23-31); Chloride 113 mmol/L (98-107); Estimated GFR-MDRD 42; Globulin 3.9 g/dL (2.4-3.5); Glucose 141 mg/dL (83-110); Protein, Total 7.5 g/dL (6.0-8.3); Sodium 141 mmol/L (136-145)
--- NOTE | 2019-10-11 07:11 | CT ---
PRELIMINARY REPORT/[facility]/EMERGENCY AFTER HOURS PROCEDURE: EXAM: CT Head Without Intravenous Contrast. CLINICAL HISTORY: Supposedly had a seizure earlier this morning; fell out of bed; no injury; no pain, no loc; no complaints; h/o seizures; not on any kind of seizure medication TECHNIQUE: Axial computed tomography images of the head/brain without intravenous contrast. COMPARISON: None provided. FINDINGS: BRAIN: No intracranial hemorrhage. Mild cerebral atrophy. Small colloid cyst measuring 4 mm. Mild per iventricular hypodensities due to small vessel ischemic disease. VENTRICLES: No hydrocephalus. ORBITS: The orbits are unremarkable. SINUSES AND MASTOIDS: The paranasal sinuses and mastoid air cells are clear. SOFT TISSUES: No significant facial or scalp soft tissue swelling evident. No radiopaque foreign body is seen. BONES: No acute skull fracture. IMPRESSION: No acute intracranial abnormality. ELECTRONICALLY SIGNED BY: Soraya Dc MD Oct 11, 2019 6:16:53 AM [facility] FINAL REPORT EMERGENCY AFTER-HOURS STUDY CT BRAIN NONCONTRAST: DATE: 10/11/2019. HISTORY: 73-year-old female status post seizure resulting in fall, head trauma. FINDINGS: There is no evidence of acute intra-axial or extra-axial hemorrhage. There is no midline shift or any other mass effect. There is no extra-axial fluid collection. There is no evidence of obstructive hydrocephalus. Calvarium is intact. Approximately 6 mm hyperdense mass at midline at foramen of Monro . Agree with preliminary report by [facility]. IMPRESSION: 1. No acute intracranial findings. 2. Colloid cyst. Transcribed Date/Time: 10/11/2019 7:53 AM
--- NOTE | 2019-10-11 07:15 | RAD ---
RADIOGRAPH CHEST 1 VIEW: DATE: 10/11/2019 HISTORY: 74-year-old female status post syncope and seizure. Concern for aspiration. FINDINGS: The thoracic aorta is tortuous and ectatic. There is no evidence of airspace density, pulmonary edema , or pneumothorax. The lateral costophrenic angles are not effaced. No cardiomegaly. IMPRESSION: 1) No acute pulmonary findings. 2) ectasia of thoracic aorta.
== END 2019-10-11 08:05 | disposition home or self-care (01) ==
LOC: MADERS 04:53
DX: D64.9 Anemia, unspecified (principal); I11.0 Hypertensive heart disease with heart failure; I50.9 Heart failure, unspecified; E78.5 Hyperlipidemia, unspecified; E11.9 Type 2 diabetes mellitus without complications; E78.00 Pure hypercholesterolemia, unspecified; J44.9 Chronic obstructive pulmonary disease, unspecified; E66.9 Obesity, unspecified; Z87.891 Personal history of nicotine dependence; Z79.891 Long term (current) use of opiate analgesic; W06.XXXA Fall from bed, initial encounter
CPT/HCPCS: 70450; 71045; 80053; 85025; Q0162

== ENCOUNTER 2019-11-30 15:22 | Inpatient (IN) | payer MEDICARE, MEDICAID ==
[2019-11-30] MEDS ORDERED: Ondansetron PF 4 MG/2 ML Vial IVP PRN (15:27)
[2019-11-30 16:14] VITALS: BMI 36.2
[2019-11-30] MEDS ORDERED: Enoxaparin Sodium 30 MG/0.3 ML SYRINGE SC SCH (16:45)
--- NOTE | 2019-11-30 17:15 | RAD ---
RADIOGRAPH CHEST 1 VIEW: DATE: 11/30/2019 HISTORY: 74-year-old female with COPD exacerbation. FINDINGS: Hypoinflated lungs. Prominent interstitial markings. The thoracic aorta is tortuous and ectatic. Ther e is no evidence of airspace density, pulmonary edema, or pneumothorax. The lateral costophrenic angles are not effaced. IMPRESSION: 1) No acute pulmonary findings. 2) ectasia of thoracic aorta.
[2019-11-30 18:20] LABS: #Eosinphils 0.2 thou/uL (0.0-0.7); #Lymphocytes 1.7 thou/uL (1.20-3.40); #Monocytes 0.9 thou/uL (0.11-0.59); #Neutrophils 10.1 thou/uL (1.40-6.50); %Basophils 0.3 % (0.0-1.0); %Eosinophils 1.8 % (0.0-10.0); %Lymphocytes 12.8 % (21.0-51.0); %Neutrophils 78.1 % (42.0-75.0); Hemoglobin 10.1 g/dL (12.0-16.0); Mean Corpuscular HGB CONC 30.5 g/dL (32.0-36.0); Mean Corpuscular Hemoglobin 30.7 pg (27.0-31.0); Mean Corpuscular Volume 100.7 fL (78.0-98.0); Mean Platelet Volume 6.3 fL (7.4-10.4); Platelet Count 270 thou/uL (130-400); RBC Distribution Width 14.7 % (11.5-14.5); Red Blood Cell (RBC) Count 3.28 mill/uL (4.20-5.40)
[2019-11-30 18:21] LABS: ALT (SGPT) Less than 7 U/L (8-55); AST (SGOT) 8 U/L (5-34); Albumin 3.4 g/dL (3.4-4.8); Alkaline Phosphatase 68 U/L (40-110); Anion Gap 20 mmol/L (10-20); BUN (Urea Nitrogen) 28 mg/dL (9.8-20.1); Bilirubin, Total 0.7 mg/dL (0.2-1.2); Calc. Creatinine Clearance 16 mL/min (70-130); Calcium 8.6 mg/dL (7.8-10.44); Carbon Dioxide 26 mmol/L (23-31); Chloride 100 mmol/L (98-107); Estimated GFR-MDRD 11; Globulin 4.1 g/dL (2.4-3.5); Glucose 113 mg/dL (83-110); Potassium 3.9 mmol/L (3.5-5.1); Protein, Total 7.5 g/dL (6.0-8.3); Sodium 142 mmol/L (136-145)
[2019-11-30] MEDS ORDERED: Sodium Chloride 0.9% 500 ML IVPB SCH (19:00)
[2019-11-30] MEDS: Mometasone/Formoterol 200/5 60 PUFF INH SCH (20:33)
[2019-11-30] MEDS: Gabapentin 300 MG CAP PO SCH (20:35)
[2019-11-30] MEDS: Atorvastatin Calcium 10 MG TAB PO SCH (20:35)
[2019-11-30] MEDS: levETIRAcetam 500 MG TAB PO SCH (20:36)
[2019-11-30] MEDS: Heparin 5,000 UNITS/ML VIAL SC SCH (21:24)
[2019-11-30] MEDS: Acetaminophen 325 MG TAB PO PRN (21:57)
[2019-11-30] MEDS: Nystatin Powder 15 GM BOT TOP PRN (23:16)
[2019-12-01] MEDS: Acetaminophen 325 MG TAB PO PRN ×3 (03:33→15:50)
[2019-12-01 03:55] LABS: Bilirubin Small (Negative); Blood, Urine Negative (Negative); Clarity Cloudy (Clear); Glucose, Urine (Dipstick) Negative (Negative); Leukocyte Negative (Negative); Nitrite Negative (Negative); Protein, Urine (Dipstick) 30 mg/dL (Neg-Trace); Urobilinogen 0.2 mg/dL (Less than 2)
[2019-12-01 03:56] LABS: Urine Culture Reflex No No
[2019-12-01 03:58] LABS: Bacteria/HPF Rare-Few HPF (None Seen); RBC/HPF None Seen HPF (0-3); Squamous Epithelial 0-3 HPF (0-3); WBC/HPF 0-3 HPF (0-3)
[2019-12-01 05:51] LABS: Anion Gap 17 mmol/L (10-20); BUN (Urea Nitrogen) 29 mg/dL (9.8-20.1); Calc. Creatinine Clearance 15 mL/min (70-130); Calcium 7.9 mg/dL (7.8-10.44); Carbon Dioxide 22 mmol/L (23-31); Chloride 104 mmol/L (98-107); Estimated GFR-MDRD 10; Glucose 86 mg/dL (83-110); Potassium 3.6 mmol/L (3.5-5.1); Sodium 139 mmol/L (136-145)
[2019-12-01 07:35] LABS: Mean Corpuscular HGB CONC 29.2 g/dL (32.0-36.0); Mean Corpuscular Hemoglobin 29.8 pg (27.0-31.0); Mean Corpuscular Volume 102.3 fL (78.0-98.0); Mean Platelet Volume 7.3 fL (7.4-10.4); Platelet Count 266 thou/uL (130-400); RBC Distribution Width 14.7 % (11.5-14.5); Red Blood Cell (RBC) Count 3.03 mill/uL (4.20-5.40); White Blood Cell (WBC) Count 10.7 thou/uL (4.8-10.8)
[2019-12-01] MEDS: predniSONE 20 MG TAB PO SCH (07:58)
[2019-12-01 07:59] LABS: Anisocytosis SLIGHT = 6-15 cells (100X) (0-5/hpf); Band 2 % (5-11); Lymphocytes 20 % (21-51); MDiff Complete? YES; Manual Diff?? YES; Monocytes 4 % (0-10); Neutrophil 74 % (42-75)
[2019-12-01 08:00] LABS: Platelet Morphology Comment Appears Adequate
[2019-12-01] MEDS: Mometasone/Formoterol 200/5 60 PUFF INH SCH ×2 (08:01→20:58)
[2019-12-01] MEDS: Heparin 5,000 UNITS/ML VIAL SC SCH ×3 (09:56→21:03)
[2019-12-01] MEDS: Gabapentin 300 MG CAP PO SCH ×2 (09:57→21:03)
[2019-12-01] MEDS: levETIRAcetam 500 MG TAB PO SCH ×2 (09:57→21:03)
[2019-12-01] MEDS: Sodium Chloride 0.9% 1,000 ML IV SCH ×2 (09:57→21:12)
[2019-12-01] MEDS: Nystatin Powder 15 GM BOT TOP PRN (09:58)
--- NOTE | 2019-12-01 10:01 | HP ---
ADMITTING ATTENDING/PRIMARY CARE PROVIDER: Kelly Rodriguez MD HISTORY OF PRESENT ILLNESS: Patient is a 74-year-old female with history of seizure disorder as well as COPD and diastolic heart failure, who presents as a direct admission from clinic. The patient has a history of recent ER evaluation for seizures related to medication noncompliance. The patient was brought to the clinic by a family friend, who stated that patient has been reporting generalized weakness and soreness since these seizures several days ago. On evaluation in the clinic, the patient had blood pressure of 80/48 as well as an oxygen saturation of 71% on room air. She was given a breathing treatment and subsequently oxygenation improved at 80%. The patient was given supplemental oxygen and the decision was made to admit patient to the hospital due to concern for COPD exacerbation, hypotension, and generalized weakness. PAST MEDICAL HISTORY: 1. Heart failure with preserved ejection fraction. 2. COPD. 3. Seizure disorder. 4. CKD stage 3. 5. Anemia of chronic disease. 6. Morbid obesity. 7. Gastroesophageal reflux disease. 8. Hypertension. 9. Hyperlipidemia. 10. Chronic pain. MEDICATIONS: 1. Ventolin HFA 108 mcg per actuation q.4 hours p.r.n. 2. Furosemide 40 mg daily. 3. Symbicort 160-4.5 mcg per actuation 2 puffs b.i.d. 4. Keppra 500 mg p.o. b.i.d. 5. Carvedilol 12.5 mg p.o. b.i.d. 6. Amlodipine 10 mg p.o. daily. 7. Tramadol 50 mg q.8 hours p.r.n. 8. Valsartan 160 mg p.o. daily. 9. Gabapentin 300 mg p.o. b.i.d. 10. Tylenol Extra Strength 500 mg q.6 hours p.r.n. ALLERGIES: NO KNOWN DRUG ALLERGIES. PAST SURGICAL HISTORY: 1. Ileostomy/colostomy. 2. ORIF of right patellar fracture. FAMILY HISTORY: Noncontributory. SOCIAL HISTORY: The patient lives at home with her sisters and one of her sister's partners. She does have home health that comes to the house. The patient is a former smoker. Denies drug and alcohol use. REVIEW OF SYSTEMS: GENERAL: Patient reports generalized weakness. She denies fevers or chills. HEENT: Patient denies nasal congestion, runny nose, or eye problems. CARDIOVASCULAR: Patient denies chest pain, palpitations. RESPIRATORY: Patient reports cough. Denies shortness of breath. ABDOMEN: Patient denies nausea, vomiting, diarrhea. SKIN: Patient denies rashes or lesions. MUSCULOSKELETAL: Patient reports back pain. NEUROLOGICAL: Patient denies focal weakness. She does report frontal headache. PSYCHIATRIC: Patient denies anxiety and depression. PHYSICAL EXAMINATION: VITALS: Temperature 100.1, pulse 88, respirations 18, oxygen 95% on 2 L, blood pressure 98/62. GENERAL: Patient is alert and oriented x3, in no distress. HEENT: Eyes, extraocular muscles intact. Conjunctiva clear. Oral cavity, moist mucous membranes. CARDIOVASCULAR: Regular rate and rhythm with no murmurs, rubs, or gallops. LUNGS: Diffuse wheezing heard throughout. No use of accessory muscles of respiration. ABDOMEN: Soft, nontender to palpation. No organomegaly or distention noted. Patient has ileostomy in place. EXTREMITIES: Patient moves all extremities well. No clubbing, cyanosis, or edema. NEUROLOGICAL: Cranial nerves 2 through 12 intact. No focal weakness. Strength 4/5 throughout. SKIN: Patient has redness and irritation noted under her pannus and under breast folds. No ulcerations noted. ASSESSMENT AND PLAN: Patient is a 74-year-old female with a history of chronic obstructive pulmonary disease, now with hypoxia and history of diastolic heart failure and seizure disorder, being admitted for inpatient evaluation. 1. Acute hypoxic respiratory failure. 2. Chronic obstructive pulmonary disease exacerbation. 3. Possible diastolic heart failure exacerbation. 4. Seizure disorder. 5. Chronic kidney disease. 6. Hypertension. 7. Hyperlipidemia. 8. Anemia of chronic disease. 9. Hypotension. PLAN: We will admit patient to the hospital as an inpatient. Continue supplemental oxygen and wean as tolerated. We will schedule nebulizer treatments and resume patient's home inhalers. Chest x-ray has been ordered and results are pending at the time of initial evaluation. Labs ordered as follows; basic metabolic panel, brain natriuretic peptide, CBC all pending at the time of evaluation. We also ordered p.o. steroids to hopefully help with patient's respiratory status. Physical therapy, occupational therapy, and speech therapy ordered with patient's history of generalized weakness. We will resume patient's seizure medications. Patient is placed on seizure precautions. Home antihypertensives have been held and will be restarted as patient's blood pressure responds. Concern was brought by Nursing for patient's situation at home. While they were assessing and bathing patient, patient was noted to have napkins under her skin folds and was noted to be very malodorous and concern was brought for patient's level of care. Patient's home health nurses did call [facility] and also did make a note to place a call to patient's home health service provider line to assess the home situation. We will also reach out to Case Management for assistance with this process of evaluating patient's home status. DVT prophylaxis, heparin. CODE STATUS: Full code and this decision was made by patient at the bedside. LENGTH OF STAY: Likely to be greater than 2 midnights. Job ID: [id number]
[2019-12-01 11:29] LABS: Creatinine, Urine Greater than 430.00 mg/dL (47-110); Sodium, Urine Less than 20 mmol/L (Not Available)
[2019-12-01] MEDS ORDERED: Amoxicillin/Potassium Clav 875 MG TAB PO SCH (12:30)
--- NOTE | 2019-12-01 15:48 | PRG ---
DATE OF SERVICE: 12/01/2019 SUBJECTIVE: The patient was seen and examined at the bedside. The patient does report improvement in her symptoms compared to admission. She denies shortness of breath or cough at this time. She still is requiring supplemental oxygen. No adverse events overnight. The patient denies any chest pain or abdominal pain. OBJECTIVE: VITAL SIGNS: Temperature 98.1, pulse 74, respirations 16, oxygen 95% on 3 L nasal cannula, and blood pressure 114/62. GENERAL: The patient is alert and oriented to person and place. She does have some difficulty with the date. HEENT: Normocephalic, atraumatic. Extraocular muscles intact. Moist mucous membranes. CARDIOVASCULAR: Regular rate and rhythm with no murmurs, rubs, or gallops. LUNGS: Mostly clear to auscultation. Faint wheezes heard, improvement noted compared to prior examination. EXTREMITIES: No peripheral edema noted. SKIN: No rashes or lesions. NEUROLOGIC: Cranial nerves 2 through 12 intact grossly. PSYCHIATRIC: Appropriate mood and affect. LABORATORY AND DIAGNOSTIC DATA: CBC shows a white blood cell count of 10.7, hemoglobin 9.0, hematocrit 31.0, MCV 102.3, platelet count 266. BMP; sodium 139, potassium 3.6, chloride 104, carbon dioxide 22, BUN 29, creatinine 5.09, glucose 86, and calcium 7.9. Procalcitonin 0.22. Chest x-ray showed no acute pulmonary findings. Ectasia of the thoracic aorta. ASSESSMENT AND PLAN: 1. Acute hypoxic respiratory failure, improving with supplemental oxygen. We will wean as tolerated. 2. Chronic obstructive pulmonary disease exacerbation, see #1. We will space out the patient's nebulizer treatments from q.4 to q.6 for the remainder of the day and then hopefully tonight change to p.r.n. We will also add on p.o. antibiotics. Continue p.o. steroids as well. 3. Seizure disorder. Continue home Keppra. 4. Acute on chronic kidney disease. The patient did receive 500 mL bolus of fluid yesterday. The patient's fractional excretion of sodium was approximately 0.2% suggesting a prerenal etiology. We will continue maintenance fluids throughout the day. We will repeat a BMP later today. Hopefully, this will show some improvement in her kidney function. 5. Volume depletion, see above. 6. Hypertension. We will continue to hold the patient's home antihypertensives until blood pressure improves. 7. Hyperlipidemia. Resume home medications. 8. Anemia of chronic disease, likely related to chronic kidney disease to some degree, however, may also be nutritional. We will add on folate and B12 to the patient's labs to evaluate for macrocytosis given MCV of 102. 9. Generalized weakness. Continue physical therapy and occupational therapy. 10. Deep venous thrombosis prophylaxis: Heparin. Job ID: [id number]
[2019-12-01 17:16] LABS: Anion Gap 18 mmol/L (10-20); BUN (Urea Nitrogen) 37 mg/dL (9.8-20.1); Calc. Creatinine Clearance 15 mL/min (70-130); Calcium 7.8 mg/dL (7.8-10.44); Carbon Dioxide 25 mmol/L (23-31); Chloride 101 mmol/L (98-107); Estimated GFR-MDRD 10; Glucose 234 mg/dL (83-110); Potassium 4.2 mmol/L (3.5-5.1); Sodium 140 mmol/L (136-145)
[2019-12-01] MEDS: Amoxicillin/Potassium Clav 875 MG TAB PO SCH (21:03)
[2019-12-01] MEDS: Atorvastatin Calcium 10 MG TAB PO SCH (21:03)
[2019-12-02 06:11] LABS: Anion Gap 16 mmol/L (10-20); BUN (Urea Nitrogen) 40 mg/dL (9.8-20.1); Calc. Creatinine Clearance 19 mL/min (70-130); Calcium 8.1 mg/dL (7.8-10.44); Carbon Dioxide 23 mmol/L (23-31); Chloride 104 mmol/L (98-107); Estimated GFR-MDRD 13; Glucose 152 mg/dL (83-110); Potassium 3.9 mmol/L (3.5-5.1); Sodium 139 mmol/L (136-145)
[2019-12-02] MEDS: Sodium Chloride 0.9% 1,000 ML IV SCH (08:21)
[2019-12-02] MEDS: Heparin 5,000 UNITS/ML VIAL SC SCH ×3 (08:22→21:17)
[2019-12-02] MEDS: Amoxicillin/Potassium Clav 875 MG TAB PO SCH ×2 (08:23→21:16)
[2019-12-02] MEDS: levETIRAcetam 500 MG TAB PO SCH ×2 (08:23→21:16)
[2019-12-02] MEDS: predniSONE 20 MG TAB PO SCH (08:23)
[2019-12-02] MEDS: Gabapentin 300 MG CAP PO SCH ×2 (08:23→21:16)
[2019-12-02] MEDS: Mometasone/Formoterol 200/5 60 PUFF INH SCH ×2 (08:25→21:14)
--- NOTE | 2019-12-02 09:17 | PRG ---
DATE OF SERVICE: 12/02/2019 SUBJECTIVE: The patient is a 74-year-old female, who was admitted for generalized weakness and acute hypoxic respiratory failure secondary to COPD exacerbation. The patient was seen and examined at the bedside today. She does report some improvement in her symptoms compared to prior. She does report periodic episodes of bilateral hand and arm tremors. She denies any shortness of breath or cough. She is still on supplemental oxygen. No adverse events overnight per nursing. The patient has no complaints. Denies chest pain, shortness of breath, or abdominal pain. OBJECTIVE: VITAL SIGNS: Temperature 97.5, pulse 59, respirations 18, oxygen 99% on 3 L, and blood pressure 158/72. GENERAL: The patient is alert, oriented to person, place, and time. HEENT: Normocephalic, atraumatic. Extraocular muscles intact. Moist mucous membranes. CARDIOVASCULAR: Regular rate and rhythm with no murmurs, rubs, or gallops. LUNGS: Clear to auscultation bilaterally. No wheezes noted. Improvement compared to prior exam. EXTREMITIES: Normal bulk and tone. No peripheral edema noted. SKIN: No rashes or lesions. NEUROLOGIC: Cranial nerves 2 through 12 intact grossly. Mild bilateral upper extremity low-frequency tremor with high amplitude. PSYCHIATRIC: Appropriate mood and affect. LABORATORY DATA: Basic metabolic panel, which shows sodium 139, potassium 3.9, chloride 104, carbon dioxide 23, BUN 40, creatinine 3.95, glucose 152, calcium 8.1. B12 of 977. ASSESSMENT AND PLAN: 1. Acute hypoxic respiratory failure. Improving with supplemental oxygen. Continue to wean as tolerated. Hopefully, to discontinue oxygen today. 2. Chronic obstructive pulmonary disease exacerbation, see #1. We will schedule nebulizer treatments to as needed. Continue p.o. antibiotics. Continue p.o. steroids. 3. Seizure disorder. Continue on Keppra. 4. Acute on chronic kidney disease. Creatinine did improve from 5.17 to 3.95 overnight. We will continue maintenance fluids for a few more hours and discontinue them today at noon. The patient was encouraged to increase p.o. intake of fluids. 5. Volume depletion, see above. 6. Hypertension. We will continue to hold the patient's home antihypertensives at this time and consider resuming if blood pressures consistently become greater than 150/90. 7. Hyperlipidemia. Resume home medications. 8. Anemia of chronic disease, likely to some degree related to renal failure. B12 is elevated at 977. No concern for B12 deficiency. RBC folate is pending. 9. Bilateral upper extremity tremor, may potentially be related to generalized weakness, likely related to seizure disorder. We will continue to monitor. The patient may need to follow up with neurologist on an outpatient basis. 10. Generalized weakness. Continue physical therapy and occupational therapy. With the patient on fluids, full participation with physical therapy has been difficult. We will continue to monitor. 11. Deep venous thrombosis prophylaxis. Continue heparin t.i.d. Job ID: [id number]
[2019-12-02] MEDS: Atorvastatin Calcium 10 MG TAB PO SCH (21:16)
[2019-12-03 05:46] LABS: Anion Gap 16 mmol/L (10-20); BUN (Urea Nitrogen) 43 mg/dL (9.8-20.1); Calc. Creatinine Clearance 35 mL/min (70-130); Calcium 8.5 mg/dL (7.8-10.44); Carbon Dioxide 24 mmol/L (23-31); Chloride 106 mmol/L (98-107); Estimated GFR-MDRD 27; Glucose 156 mg/dL (83-110); Potassium 4.9 mmol/L (3.5-5.1); Sodium 141 mmol/L (136-145)
[2019-12-03] MEDS: Mometasone/Formoterol 200/5 60 PUFF INH SCH (09:02)
[2019-12-03] MEDS: predniSONE 20 MG TAB PO SCH (09:03)
[2019-12-03] MEDS: levETIRAcetam 500 MG TAB PO SCH (09:03)
[2019-12-03] MEDS: Gabapentin 300 MG CAP PO SCH (09:03)
[2019-12-03] MEDS: Amoxicillin/Potassium Clav 875 MG TAB PO SCH (09:04)
[2019-12-03] MEDS: Heparin 5,000 UNITS/ML VIAL SC SCH (09:04)
[2019-12-03 09:05] VITALS: BP 120/58; TEMP 97.2
[2019-12-03 13:36] LABS: Hematocrit 29.2 % (34.0-46.6); RBC Folate Test Component 825 ng/mL (>498)
== END 2019-12-03 11:12 | disposition swing bed (61) | DRG 189 ==
LOC: UNDOADMIN 15:26 → MADMS 15:26
PROVIDERS: ADMIT Family Medicine; ATTEND Family Medicine
DX: J96.01 Acute respiratory failure with hypoxia (principal); J44.1 Chronic obstructive pulmonary disease with (acute) exacerbation; I13.0 Hypertensive heart and chronic kidney disease with heart failure and stage 1 through stage 4 chronic kidney disease, or unspecified chronic kidney disease; I50.32 Chronic diastolic (congestive) heart failure; N18.3 Chronic kidney disease, stage 3 (moderate); G40.909 Epilepsy, unspecified, not intractable, without status epilepticus; D63.1 Anemia in chronic kidney disease; E66.01 Morbid (severe) obesity due to excess calories; K21.9 Gastro-esophageal reflux disease without esophagitis; E78.5 Hyperlipidemia, unspecified; I95.9 Hypotension, unspecified; G89.29 Other chronic pain; Z91.14 Patient's other noncompliance with medication regimen; Z93.3 Colostomy status
CPT/HCPCS: 36415; 71045; 80048; 80053; 81001; 82570; 82607; 82747; 83880; 84145; 84300; 85025; 87040; 87149; 94640; J1644; J7050; J7512; J7620

== ENCOUNTER 2019-12-03 09:43 | Inpatient (IN) | payer MEDICARE, MEDICAID ==
[2019-12-03 12:56] VITALS: BMI 36.2
[2019-12-03] MEDS: Heparin 5,000 UNITS/ML VIAL SC SCH ×2 (15:47→20:31)
--- NOTE | 2019-12-03 17:36 | HP ---
HISTORY OF PRESENT ILLNESS: The patient is a 74-year-old female, who is being admitted to the hospital for usp and rehabilitation. The patient was discharged today from the inpatient service due to acute hypoxic respiratory failure secondary to COPD exacerbation as well as hypotension and acute kidney injury. The patient also had acute on chronic kidney injury related to volume depletion and prerenal azotemia. She did receive IV fluids and kidney function improved, however, was not completely at baseline. Regarding COPD exacerbation, the patient received scheduled DuoNeb on day #1 and this was eventually changed to p.r.n. as the patient's respiratory status improved. She is still requiring oxygen desaturations on room air and this is being titrated. The patient still does continue to have some generalized weakness and will benefit from physical therapy and occupational therapy. PAST MEDICAL HISTORY: 1. COPD. 2. Chronic kidney disease stage 3. 3. Seizure disorder. 4. Heart failure with preserved ejection fraction. 5. Anemia of chronic disease. 6. Morbid obesity. 7. Gastroesophageal reflux disease. 8. Hypertension. 9. Hyperlipidemia. 10. Chronic pain. HOME MEDICATIONS: 1. Ventolin 108 mcg per actuation q.4 hours p.r.n. 2. Furosemide 40 mg daily. 3. Symbicort 160/4.5 mcg per actuation 2 puffs b.i.d. 4. Keppra 500 mg p.o. b.i.d. 5. Carvedilol 12.5 mg p.o. b.i.d. 6. Amlodipine 10 mg p.o. daily. 7. Tramadol 50 mg p.o. q.8 hours p.r.n. 8. Valsartan 160 mg p.o. daily. 9. Gabapentin 300 mg p.o. b.i.d. 10. Tylenol Extra Strength 500 mg q.6 hours p.r.n. ALLERGIES: NO KNOWN DRUG ALLERGIES. PAST SURGICAL HISTORY: 1. Ileostomy/colostomy. 2. ORIF of right patellar fracture. FAMILY HISTORY: Noncontributory. SOCIAL HISTORY: The patient lives at home with her sisters and one of her sisters' partner. She does have Home Health who comes to the house. The patient is a former smoker. Denies any drug or alcohol use. REVIEW OF SYSTEMS: CONSTITUTIONAL: The patient reports generalized weakness. Denies fevers or chills. HEENT: The patient denies nasal congestion, runny nose, or eye problems. CARDIOVASCULAR: The patient denies chest pain or palpitations. RESPIRATORY: The patient denies cough or shortness of breath. ABDOMEN: The patient denies nausea, vomiting, diarrhea, or constipation. SKIN: The patient does report rashes in her intertriginous zones. MUSCULOSKELETAL: The patient reports back pain. RESPIRATORY: The patient currently denies cough or shortness of breath. NEUROLOGIC: The patient denies any headache or seizure activity. She does report right upper extremity tremors intermittently. PSYCHIATRIC: The patient denies anxiety or depression. PHYSICAL EXAMINATION: VITAL SIGNS: Temperature 97.2, pulse 59, respirations 20, oxygen 97% on 2 L. GENERAL: The patient is alert and oriented x3, in no distress. HEENT: Normocephalic, atraumatic. Extraocular muscles intact. Moist mucous membranes. CARDIOVASCULAR: Regular rate and rhythm with no murmurs, rubs, or gallops. LUNGS: Clear to auscultation bilaterally with faint bibasilar crackles noted. No wheezes noted on today's examination. EXTREMITIES: Normal bulk and tone. No peripheral edema noted. SKIN: No rashes or lesions. NEUROLOGIC: Cranial nerves 2 through 12 intact grossly. Mild right upper extremity tremor noted today. ABDOMEN: Soft, nontender to palpation. Ileostomy in place. PSYCHIATRIC: Appropriate mood and affect. ASSESSMENT AND PLAN: The patient is a 74-year-old female with recent hospitalization for chronic obstructive pulmonary disease exacerbation, acute on chronic renal failure, hypovolemia, being admitted to [facility] for continued rehabilitation. 1. Acute hypoxic respiratory failure, improving with supplemental oxygen. We will continue to wean as tolerated. 2. Chronic obstructive pulmonary disease exacerbation, improving. We will continue as needed nebulizer treatments. We will continue p.o. antibiotics and steroids that were initiated during the patient's inpatient hospitalization. We will also add on incentive spirometry q.2 hours while awake to hopefully improve the patient's respiratory function almost at baseline, see #1. 3. Physical debility. Physical Therapy and Occupational Therapy have been consulted for continued evaluation and treatment. Hopefully, the patient's physical functioning will improve with more physical therapy. 4. Seizure disorder. Continue Keppra. Seizure precautions on board. 5. Acute on chronic kidney disease, significantly improving. We will repeat a BMP in 48 hours and continue to encourage p.o. hydration. 6. Hypertension. We will hold the patient's home antihypertensives until blood pressures consistently become greater than 150/90. 7. Hyperlipidemia. Resume home medications. 8. Anemia of chronic disease. We will continue to monitor. May consider iron supplementation. 9. Bilateral upper extremity tremor, more than likely related to physical debility, however, if no significant improvement, the patient may need follow up with Neurology on an outpatient basis. 10. Deep venous thrombosis prophylaxis. We will continue heparin subcu. Job ID: [id number]
[2019-12-03] MEDS: Gabapentin 300 MG CAP PO SCH (20:30)
[2019-12-03] MEDS: levETIRAcetam 500 MG TAB PO SCH (20:30)
[2019-12-03] MEDS: Atorvastatin Calcium 10 MG TAB PO SCH (20:30)
[2019-12-03] MEDS: Amoxicillin/Potassium Clav 875 MG TAB PO SCH (20:30)
[2019-12-03] MEDS: Mometasone/Formoterol 200/5 60 PUFF INH SCH (20:30)
[2019-12-04] MEDS: Mometasone/Formoterol 200/5 60 PUFF INH SCH ×3 (07:30→21:02)
[2019-12-04] MEDS: Heparin 5,000 UNITS/ML VIAL SC SCH ×3 (08:31→21:09)
[2019-12-04] MEDS: predniSONE 20 MG TAB PO SCH (08:32)
[2019-12-04] MEDS: Amoxicillin/Potassium Clav 875 MG TAB PO SCH ×2 (08:32→21:09)
[2019-12-04] MEDS: levETIRAcetam 500 MG TAB PO SCH ×2 (08:32→21:09)
[2019-12-04] MEDS: Gabapentin 300 MG CAP PO SCH ×2 (08:32→21:09)
[2019-12-04] MEDS: Atorvastatin Calcium 10 MG TAB PO SCH (21:09)
[2019-12-05] MEDS: Gabapentin 300 MG CAP PO SCH ×2 (08:26→21:57)
[2019-12-05] MEDS: Amoxicillin/Potassium Clav 875 MG TAB PO SCH ×2 (08:26→21:57)
[2019-12-05] MEDS: predniSONE 20 MG TAB PO SCH (08:27)
[2019-12-05] MEDS: Heparin 5,000 UNITS/ML VIAL SC SCH ×3 (08:27→21:58)
[2019-12-05] MEDS: levETIRAcetam 500 MG TAB PO SCH ×2 (08:28→21:57)
[2019-12-05] MEDS: Mometasone/Formoterol 200/5 60 PUFF INH SCH ×2 (08:28→21:58)
[2019-12-05 08:35] LABS: Anion Gap 14 mmol/L (10-20); BUN (Urea Nitrogen) 49 mg/dL (9.8-20.1); Calc. Creatinine Clearance 49 mL/min (70-130); Calcium 9.1 mg/dL (7.8-10.44); Carbon Dioxide 26 mmol/L (23-31); Chloride 108 mmol/L (98-107); Estimated GFR-MDRD 40; Glucose 190 mg/dL (83-110); Potassium 5.8 mmol/L (3.5-5.1); Sodium 142 mmol/L (136-145)
[2019-12-05] MEDS: Atorvastatin Calcium 10 MG TAB PO SCH (21:57)
[2019-12-06 07:36] LABS: Anion Gap 14 mmol/L (10-20); BUN (Urea Nitrogen) 45 mg/dL (9.8-20.1); Calc. Creatinine Clearance 61 mL/min (70-130); Carbon Dioxide 22 mmol/L (23-31); Chloride 112 mmol/L (98-107); Estimated GFR-MDRD 51; Glucose 129 mg/dL (83-110); Potassium 5.7 mmol/L (3.5-5.1); Sodium 142 mmol/L (136-145)
[2019-12-06] MEDS: Gabapentin 300 MG CAP PO SCH ×2 (08:56→22:22)
[2019-12-06] MEDS: Amoxicillin/Potassium Clav 875 MG TAB PO SCH ×2 (08:56→22:21)
[2019-12-06] MEDS: Heparin 5,000 UNITS/ML VIAL SC SCH ×2 (08:56→16:07)
[2019-12-06] MEDS: levETIRAcetam 500 MG TAB PO SCH ×2 (08:56→22:22)
[2019-12-06] MEDS: Mometasone/Formoterol 200/5 60 PUFF INH SCH ×2 (08:59→22:22)
[2019-12-06 13:28] LABS: Anion Gap 15 mmol/L (10-20); BUN (Urea Nitrogen) 44 mg/dL (9.8-20.1); Calc. Creatinine Clearance 57 mL/min (70-130); Calcium 9.4 mg/dL (7.8-10.44); Carbon Dioxide 25 mmol/L (23-31); Chloride 109 mmol/L (98-107); Estimated GFR-MDRD 48; Glucose 204 mg/dL (83-110); Potassium 4.6 mmol/L (3.5-5.1); Sodium 144 mmol/L (136-145)
--- NOTE | 2019-12-06 17:29 | PRG ---
DATE OF SERVICE: 12/06/2019 SUBJECTIVE: The patient is a 74-year-old female, on snf for rehabilitation due to generalized weakness and physical debility. The patient has no complaints today. No events overnight. She denies any chest pain or difficulty breathing. She is breathing comfortably on room air. OBJECTIVE: VITAL SIGNS: Temperature 97.5, pulse 56, respirations 18, oxygen 97% on room air. GENERAL: The patient is alert and oriented, in no distress. HEENT: Normocephalic and atraumatic. Extraocular muscles are intact. Moist mucous membranes. CARDIOVASCULAR: Regular rate and rhythm. No murmurs, rubs, or gallops. LUNGS: Clear to auscultation bilaterally. No crackles, wheezes, or rhonchi. EXTREMITIES: Normal bulk and tone. No peripheral edema. SKIN: No rashes or lesions. NEUROLOGIC: Cranial nerves 2 through 12 intact grossly. ABDOMEN: Soft. Nontender to palpation. PSYCHIATRIC: Appropriate mood and affect. LABORATORY DATA: Sodium 142, potassium 5.7, chloride 112, carbon dioxide 22, BUN 45, creatinine 1.24, GFR 51, glucose 129, calcium 9.0. Creatine kinase 10. ASSESSMENT AND PLAN: 1. Hyperkalemia. We will administer now-dose of Kayexalate. We will also obtain an EKG. We will repeat BMP in a few hours to ensure that potassium is promptly normalizing. Likely, related to kidney function as the patient is on no exogenous sources of potassium. We will continue to monitor this. No indication for urgent dialysis at this time. 2. Chronic obstructive pulmonary disease exacerbation, improving. The patient is now on room air and breathing on room air. Continue antibiotics and steroids until course completion. Incentive spirometry p.r.n. Nebulizers available p.r.n. 3. Physical debility. Physical Therapy and Occupational Therapy have been consulted, and per their notations, the patient is improving, but yet is not at goal. The patient expresses a desire to go home as soon as possible. We will continue to monitor for progress. We will touch base with Physical Therapy more than likely tomorrow to determine a plan for the patient's safety at home. 4. Wyfit-ir-johawac kidney disease. Creatinine is improving; however, the patient's BUN is above baseline; however, it has been trending down from the last several days. We will continue to monitor. We will repeat BMP in the morning. We will have the patient evaluated by Nephrology on an outpatient basis. 5. Seizure disorder. Continue Keppra. Seizure precautions have been ordered. 6. Hypertension. The patient's blood pressure was elevated this morning; however, her blood pressures have not been elevated on a very consistent basis. We will resume carvedilol, however, started at a lower dose and titrate upwards as the patient is able to tolerate it. 7. Hyperlipidemia. Continue home medications. 8. Anemia of chronic disease. Continue to monitor. 9. Deep venous thrombosis prophylaxis. We will change subcutaneous heparin to Lovenox now the patient's renal function has improved. Job ID: [id number]
[2019-12-06] MEDS: Carvedilol 3.125 MG TAB PO SCH (18:27)
[2019-12-06] MEDS ORDERED: Carvedilol 12.5 MG TAB PO SCH (21:00)
[2019-12-06] MEDS: Atorvastatin Calcium 10 MG TAB PO SCH (22:22)
[2019-12-07] MEDS: Enoxaparin Sodium 30 MG/0.3 ML SYRINGE SC SCH (08:16)
[2019-12-07] MEDS: Mometasone/Formoterol 200/5 60 PUFF INH SCH ×2 (08:16→21:57)
[2019-12-07] MEDS: Carvedilol 3.125 MG TAB PO SCH ×2 (08:17→17:02)
[2019-12-07] MEDS: Valsartan 80 MG TAB PO SCH (08:17)
[2019-12-07] MEDS: Amoxicillin/Potassium Clav 875 MG TAB PO SCH ×2 (08:17→21:56)
[2019-12-07] MEDS: Gabapentin 300 MG CAP PO SCH ×2 (08:17→21:56)
[2019-12-07] MEDS: levETIRAcetam 500 MG TAB PO SCH ×2 (08:17→21:56)
[2019-12-07] MEDS: Acetaminophen 325 MG TAB PO PRN (08:22)
[2019-12-07] MEDS: Atorvastatin Calcium 10 MG TAB PO SCH (21:56)
[2019-12-08 07:32] LABS: Sodium 140 mmol/L (136-145)
[2019-12-08] MEDS: Enoxaparin Sodium 30 MG/0.3 ML SYRINGE SC SCH (08:44)
[2019-12-08] MEDS: Carvedilol 3.125 MG TAB PO SCH ×2 (08:45→17:03)
[2019-12-08] MEDS: Valsartan 80 MG TAB PO SCH (08:45)
[2019-12-08] MEDS: levETIRAcetam 500 MG TAB PO SCH ×2 (08:45→20:54)
[2019-12-08] MEDS: Gabapentin 300 MG CAP PO SCH ×2 (08:45→20:56)
[2019-12-08] MEDS: Mometasone/Formoterol 200/5 60 PUFF INH SCH ×2 (08:45→20:56)
[2019-12-08] MEDS: Amoxicillin/Potassium Clav 875 MG TAB PO SCH ×2 (08:45→20:55)
[2019-12-08] MEDS: Acetaminophen 325 MG TAB PO PRN ×2 (09:44→19:42)
[2019-12-08 09:48] LABS: Anion Gap 14 mmol/L (10-20); BUN (Urea Nitrogen) 33 mg/dL (9.8-20.1); Calc. Creatinine Clearance 59 mL/min (70-130); Calcium 8.9 mg/dL (7.8-10.44); Carbon Dioxide 25 mmol/L (23-31); Chloride 106 mmol/L (98-107); Estimated GFR-MDRD 48; Glucose 164 mg/dL (83-110); Potassium 4.6 mmol/L (3.5-5.1)
[2019-12-08] MEDS: traMADol HCl 50 MG TAB PO PRN (14:50)
--- NOTE | 2019-12-08 17:56 | PRG ---
DATE OF SERVICE: 12/08/2019 SUBJECTIVE: The patient is a 74-year-old female, admitted to [facility] for physical therapy and rehabilitation status post COPD exacerbation and volume depletion with hypotension. The patient reports back pain, but other than that reports feeling much better compared to admission. No adverse events overnight. OBJECTIVE: VITAL SIGNS: Temperature 97.8, pulse 63, respirations 18, oxygen 95% on room air, blood pressure 141/59. GENERAL: The patient is alert and oriented to person, place, and time. HEENT: Normocephalic and atraumatic. Extraocular muscles are intact. Moist mucous membranes. CARDIOVASCULAR: Regular rate and rhythm. No murmurs, rubs, or gallops. LUNGS: Clear to auscultation bilaterally. No crackles, wheezes, or rhonchi. EXTREMITIES: Normal bulk and tone. No peripheral edema. SKIN: No rashes or lesions. NEUROLOGIC: Cranial nerves 2 through 12 intact grossly. ABDOMEN: Soft. Nontender to palpation. Ileostomy in place. PSYCHIATRIC: Appropriate mood and affect. LABORATORY EVALUATIONS: Sodium 140, potassium 4.6, chloride 106, carbon dioxide 25, BUN 33, creatinine 1.32, GFR 48, glucose 164, calcium 8.9. ASSESSMENT AND PLAN: The patient is a 74-year-old female, admitted for physical rehabilitation. 1. Physical debility. Continue physical therapy and occupational therapy. Discussed goals of treatment with the patient. We will plan for possible discharge on Friday. We will touch base with Physical Therapy to see if they agree the patient will be safe for continued rehabilitation at home. We will order physical therapy through the patient's home health company. 2. Chronic obstructive pulmonary disease exacerbation, resolved. The patient is now saturating well on room air. Antibiotics and steroid course have been completed. Continue routine chronic obstructive pulmonary disease medications. 3. Ftlpf-zt-ckzihlg kidney disease. Creatinine has stabilized and is essentially at baseline. BUN is continuing to downtrend as well. Continue to encourage p.o. hydration. The patient will likely benefit from Nephrology followup on an outpatient basis. 4. Hyperkalemia, resolved. 5. Seizure disorder. Continue Keppra. 6. Hypertension. Blood pressure is stable. We will continue carvedilol at the current dose of 3.125 mg, and we will likely resume the patient's blood pressure medications slowly on an outpatient basis. 7. Back pain, likely related to muscle spasm. The patient does take tramadol at home. We will resume this as needed. 8. Anemia of chronic disease. Continue to monitor. 9. Hyperlipidemia. Continue home medications. 10. Deep venous thrombosis prophylaxis. Continue subcutaneous heparin. DISPOSITION: Stable. We will plan for possible discharge on Friday. Job ID: [id number]
[2019-12-08] MEDS: Atorvastatin Calcium 10 MG TAB PO SCH (20:55)
[2019-12-09] MEDS: traMADol HCl 50 MG TAB PO PRN (02:20)
[2019-12-09] MEDS: levETIRAcetam 500 MG TAB PO SCH ×2 (08:17→21:02)
[2019-12-09] MEDS: Gabapentin 300 MG CAP PO SCH ×2 (08:18→21:02)
[2019-12-09] MEDS: Valsartan 80 MG TAB PO SCH (08:18)
[2019-12-09] MEDS: Enoxaparin Sodium 30 MG/0.3 ML SYRINGE SC SCH (08:18)
[2019-12-09] MEDS: Mometasone/Formoterol 200/5 60 PUFF INH SCH ×2 (08:18→21:04)
[2019-12-09] MEDS: Acetaminophen 325 MG TAB PO PRN (08:18)
[2019-12-09] MEDS: Carvedilol 3.125 MG TAB PO SCH ×2 (08:18→17:11)
[2019-12-09] MEDS: Atorvastatin Calcium 10 MG TAB PO SCH (21:01)
[2019-12-10] MEDS: Enoxaparin Sodium 30 MG/0.3 ML SYRINGE SC SCH (08:20)
[2019-12-10] MEDS: Mometasone/Formoterol 200/5 60 PUFF INH SCH (08:20)
[2019-12-10] MEDS: Carvedilol 3.125 MG TAB PO SCH (08:21)
[2019-12-10] MEDS: Valsartan 80 MG TAB PO SCH (08:21)
[2019-12-10] MEDS: levETIRAcetam 500 MG TAB PO SCH (08:21)
[2019-12-10] MEDS: Gabapentin 300 MG CAP PO SCH (08:21)
[2019-12-10 08:30] VITALS: BP 127/60; TEMP 97.3
== END 2019-12-10 16:05 | disposition home or self-care (01) | DRG 948 ==
LOC: MADMS 11:16
PROVIDERS: ADMIT Family Medicine; ATTEND Family Medicine
DX: R53.81 Other malaise (principal); J44.1 Chronic obstructive pulmonary disease with (acute) exacerbation; N18.3 Chronic kidney disease, stage 3 (moderate); G40.909 Epilepsy, unspecified, not intractable, without status epilepticus; K21.9 Gastro-esophageal reflux disease without esophagitis; I12.9 Hypertensive chronic kidney disease with stage 1 through stage 4 chronic kidney disease, or unspecified chronic kidney disease; E78.5 Hyperlipidemia, unspecified; G89.29 Other chronic pain; D63.1 Anemia in chronic kidney disease; M62.830 Muscle spasm of back; R25.1 Tremor, unspecified; E87.5 Hyperkalemia; Z79.899 Other long term (current) drug therapy; Z87.891 Personal history of nicotine dependence
CPT/HCPCS: 36415; 80048; 82550; 94664; J1644; J1650; J7512

== ENCOUNTER 2020-07-13 23:47 | Emergency (ER) | payer MEDICARE, MEDICAID ==
[2020-07-14 00:47] LABS: #Eosinphils 0.3 thou/uL (0.0-0.7); #Lymphocytes 2.1 thou/uL (1.20-3.40); #Monocytes 0.7 thou/uL (0.11-0.59); #Neutrophils 4.9 thou/uL (1.40-6.50); %Basophils 0.4 % (0.0-1.0); %Eosinophils 3.9 % (0.0-10.0); %Lymphocytes 25.8 % (21.0-51.0); %Monocytes 8.9 % (0.0-10.0); %Neutrophils 60.9 % (42.0-75.0); Hemoglobin 9.2 g/dL (12.0-16.0); Mean Corpuscular HGB CONC 30.2 g/dL (32.0-36.0); Mean Corpuscular Hemoglobin 30.1 pg (27.0-31.0); Mean Corpuscular Volume 99.8 fL (78.0-98.0); Platelet Count 265 thou/uL (130-400); RBC Distribution Width 13.5 % (11.5-14.5); Red Blood Cell (RBC) Count 3.04 mill/uL (4.20-5.40)
[2020-07-14] MEDS ORDERED: Sodium Chloride 0.9% 500 ML ONE (00:51)
[2020-07-14 00:56] LABS: Bilirubin Negative (Negative); Blood, Urine Negative (Negative); Clarity Clear (Clear); Glucose, Urine (Dipstick) Negative (Negative); Ketone, Urine Negative (Negative); Leukocyte Negative (Negative); Nitrite Negative (Negative); Protein, Urine (Dipstick) Negative (Neg-Trace); Urobilinogen 0.2 mg/dL (Less than 2)
[2020-07-14 01:00] LABS: ALT (SGPT) Less than 7 U/L (8-55); AST (SGOT) 8 U/L (5-34); Albumin 3.3 g/dL (3.4-4.8); Alkaline Phosphatase 67 U/L (40-110); Anion Gap 17 mmol/L (10-20); BUN (Urea Nitrogen) 94 mg/dL (9.8-20.1); Bilirubin, Total Less than 0.2 mg/dL (0.2-1.2); Calc. Creatinine Clearance 0 mL/min (70-130); Calcium 8.2 mg/dL (7.8-10.44); Carbon Dioxide 15 mmol/L (23-31); Chloride 106 mmol/L (98-107); Estimated GFR-MDRD 7; Glucose 142 mg/dL (83-110); Magnesium 2.3 mg/dL (1.6-2.6); Potassium 5.8 mmol/L (3.5-5.1); Protein, Total 7.3 g/dL (6.0-8.3); Sodium 132 mmol/L (136-145)
[2020-07-14 01:02] LABS: Specific Gravity, Urine 1.015 (1.002-1.036)
[2020-07-14] MEDS ORDERED: Sodium Chloride 0.9% 1,000 ML ONE (02:30)
--- NOTE | 2020-07-14 07:42 | CT ---
PRELIMINARY REPORT/[facility]/EMERGENCY AFTER HOURS PROCEDURE EXAM: CT Head Without Intravenous Contrast. CLINICAL HISTORY: Possible AMS, family states via telephone that pt sounds like herself but is not acting normal. TECHNIQUE: Axial computed tomography images of the head/brain without intravenous contrast. COMPARISON: None provided. FINDINGS: BRAIN: No acute intraparenchymal hemorrhage. No mass lesion. No CT evidence for acute territorial infarct. N o midline shift or extra-axial collection. Mild generalized cerebral atrophy. Mild subcortical and periventricular white matter hypodensities likely related to chronic ischemic small vessel diseas e. Arteriosclerosis. VENTRICLES: No hydrocephalus. ORBITS: The orbits are unremarkable. SINUSES AND MASTOIDS: Mucosal thickening of the bilateral maxillary sinuses. Effusion of the bilateral mastoid air cells. SOFT TISSUES: No significant facial or scalp soft tissue swelling evident. No radiopaque foreign body is seen. BONES: No acute skull fracture. IMPRESSION: No acute intracranial abnormality. Inflammatory changes of the bilateral maxillary sinuses. Effusion of the bilateral mastoid air cells . ELECTRONICALLY SIGNED BY: Javad Matute MD Jul 14, 2020 1:27:34 AM [employer] This report is intended for review by the ordering physician only, in accordance of law. If you recei ve this report in error, please call [facility] at [phone]. FINAL REPORT Final report by Dr. Dorado Emergency after-hours study CT BRAIN NONCONTRAST: DATE: 07/14/2020 12:17 AM HISTORY: 75-year-old female with altered mental status. FINDINGS: There is no evidence of acute intra-axial or extra-axial hemorrhage. There is no midline shift or any other mass effect. There is no extra-axial fluid collection. There is no evidence of obstructive hydrocephalus. Calvarium is intact. There is a 5 mm hyperdense lesion in the foramen of Monro. This w as not mentioned in the preliminary report by [facility]. This is a minor disagreement. There has been no interval change since 11/25/2005. Otherwise, no major disagreement with preliminary report by [facility]. IMPRESSION: 1. No acute intracranial findings. 2. 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 Transcribed Date/Time: 07/14/2020 9:11 AM
--- NOTE | 2020-07-14 07:48 | RAD ---
RADIOGRAPH CHEST 1 VIEW: DATE: 07/14/2020 HISTORY: 75-year-old female with altered mental status. Concern for aspiration. FINDINGS: There are no airspace densities, pulmonary edema, pneumothorax, or cardiomegaly. The lateral costophr enic angles are sharp. IMPRESSION: No acute cardiopulmonary findings.
[2020-07-14] MEDS ORDERED: levETIRAcetam 500 MG TAB ONE (08:08)
[2020-07-14 08:27] LABS: Anion Gap 16 mmol/L (10-20); BUN (Urea Nitrogen) 90 mg/dL (9.8-20.1); Calc. Creatinine Clearance 0 mL/min (70-130); Calcium 8.3 mg/dL (7.8-10.44); Carbon Dioxide 15 mmol/L (23-31); Chloride 109 mmol/L (98-107); Estimated GFR-MDRD 9; Glucose 113 mg/dL (83-110); Potassium 6.2 mmol/L (3.5-5.1); Sodium 134 mmol/L (136-145)
[2020-07-14] MEDS ORDERED: Dextrose 50% Abboject 50 ML SYRINGE ONE (09:20)
[2020-07-14] MEDS ORDERED: Albuterol Sulfate 2.5 mg/0.5 ml Neb ONE (09:20)
[2020-07-14] MEDS ORDERED: Insulin Regular 300 UNITS/3 ML VIAL ONE (09:20)
== END 2020-07-14 09:58 | disposition short-term general hospital (02) ==
LOC: MADERS 23:47
DX: N17.9 Acute kidney failure, unspecified (principal); I13.0 Hypertensive heart and chronic kidney disease with heart failure and stage 1 through stage 4 chronic kidney disease, or unspecified chronic kidney disease; I50.9 Heart failure, unspecified; E11.22 Type 2 diabetes mellitus with diabetic chronic kidney disease; N18.9 Chronic kidney disease, unspecified; E87.5 Hyperkalemia; E86.0 Dehydration; E66.9 Obesity, unspecified; J44.9 Chronic obstructive pulmonary disease, unspecified; Z87.891 Personal history of nicotine dependence; Z79.899 Other long term (current) drug therapy
CPT/HCPCS: 51701; 70450; 71045; 80053; 81003; 83605; 83735; 83880; 84443; 84484; 85025; 87040; 93005; 94760; 96374; 96375; J1815; J7030; J7050; J7611

== ENCOUNTER 2020-07-18 17:30 | Inpatient (IN) | payer MEDICARE, MEDICAID ==
[2020-07-18] MEDS: Gabapentin 300 MG CAP PO SCH (21:39)
[2020-07-18] MEDS: Atorvastatin Calcium 10 MG TAB PO SCH (21:39)
[2020-07-18] MEDS: Carvedilol 3.125 MG TAB PO SCH (21:39)
[2020-07-18] MEDS: Acetaminophen 325 MG TAB PO PRN (21:41)
[2020-07-18] MEDS: Sodium Bicarbonate Tab 325 MG TAB PO SCH (21:41)
[2020-07-18] MEDS: levETIRAcetam 500 MG TAB PO SCH (21:41)
[2020-07-19 03:12] VITALS: BMI 36.1
[2020-07-19] MEDS ORDERED: Mometasone/Formoterol 200/5 60 PUFF INH SCH (07:00)
[2020-07-19 07:07] LABS: Anion Gap 16 mmol/L (10-20); BUN (Urea Nitrogen) 21 mg/dL (9.8-20.1); Calc. Creatinine Clearance 50 mL/min (70-130); Calcium 8.4 mg/dL (7.8-10.44); Carbon Dioxide 27 mmol/L (23-31); Chloride 106 mmol/L (98-107); Estimated GFR-MDRD 42; Glucose 98 mg/dL (83-110); Potassium 4.1 mmol/L (3.5-5.1); Sodium 145 mmol/L (136-145)
[2020-07-19] MEDS: Acetaminophen 325 MG TAB PO PRN ×3 (07:18→22:30)
[2020-07-19 07:24] LABS: #Basophils 0.1 thou/uL (0.0-0.2); #Eosinphils 0.2 thou/uL (0.0-0.7); %Basophils 0.5 % (0.0-1.0); %Eosinophils 1.6 % (0.0-10.0); %Lymphocytes 13.2 % (21.0-51.0); %Monocytes 6.7 % (0.0-10.0); Mean Corpuscular HGB CONC 32.2 g/dL (32.0-36.0); Mean Corpuscular Hemoglobin 31.3 pg (27.0-31.0); Mean Platelet Volume 6.2 fL (7.4-10.4); Platelet Count 240 thou/uL (130-400); RBC Distribution Width 13.2 % (11.5-14.5); Red Blood Cell (RBC) Count 2.87 mill/uL (4.20-5.40); White Blood Cell (WBC) Count 15.4 thou/uL (4.8-10.8)
[2020-07-19 08:21] LABS: Lactic Acid 1.1 mmol/L (0.5-2.2)
[2020-07-19] MEDS ORDERED: FLU VACC QS2020-21(65YR UP)/PF 240 MCG/0.7 ML SYRINGE IM ONE (09:00)
[2020-07-19] MEDS: Mometasone/Formoterol 200/5 60 PUFF INH SCH ×2 (10:41→22:36)
[2020-07-19] MEDS: levETIRAcetam 500 MG TAB PO SCH ×2 (10:42→22:36)
[2020-07-19] MEDS: Gabapentin 300 MG CAP PO SCH ×2 (10:43→22:28)
[2020-07-19] MEDS: Carvedilol 3.125 MG TAB PO SCH ×2 (10:44→22:28)
[2020-07-19] MEDS: Sodium Bicarbonate Tab 325 MG TAB PO SCH ×2 (10:49→22:36)
[2020-07-19] MEDS ORDERED: cefTRIAXone\\ROCEPHIN 1 GM VIAL IM SCH (11:00)
[2020-07-19 11:35] LABS: Bilirubin Negative (Negative); Blood, Urine Large (Negative); Glucose, Urine (Dipstick) Negative (Negative); Ketone, Urine Negative (Negative); Leukocyte Small (Negative); Nitrite Negative (Negative); Protein, Urine (Dipstick) 100 mg/dL (Neg-Trace); Urobilinogen 0.2 mg/dL (Less than 2)
[2020-07-19 11:58] LABS: Bacteria/HPF Rare-Few HPF (None Seen); Clarity Hazy (Clear); RBC/HPF 21-50 HPF (0-3); Squamous Epithelial 0-3 HPF (0-3); WBC/HPF Greater Than 50 HPF (0-3); Yeast-Budding 3+ HPF (None Seen)
[2020-07-19] MEDS: Atorvastatin Calcium 10 MG TAB PO SCH (22:30)
--- NOTE | 2020-07-20 02:31 | HP ---
PRIMARY CARE PROVIDER: Kelly Rodriguez MD HISTORY OF PRESENT ILLNESS: The patient is a 75-year-old female with a history of chronic kidney disease, COPD, seizure disorder, who is being admitted for physical deconditioning. She was recently discharged from [facility] due to being admitted for concerns for altered mental status. She was found to have acute kidney injury with hyperkalemia. Hyperkalemia was treated acutely. Regarding the acute kidney injury, Nephrology was consulted and patient was started on IV fluids and a sodium bicarbonate drip. She was noted to have improvement in her kidney function by the time of discharge. Regarding her altered mental status, this is likely thought to be possibly related to uremia. CT scan of the head was negative for acute infarction and this altered mental status was improved at the time of discharge. Physical therapy was consulted during that hospitalization and recommendations were made for custodial facility placement. Since admission, patient has been febrile with a T-max of 101.3. Patient denies any respiratory symptoms. Denies cough, shortness of breath, nasal congestion. She does report bilateral wrist pain and tenderness and swelling that have been ongoing since yesterday. Denies lower extremity calf pain or tenderness. She denies nausea, vomiting, diarrhea, as well. The patient has a Pitts for an uncertain reason. PAST MEDICAL HISTORY: Significant for: 1. COPD. 2. Essential hypertension. 3. Hyperlipidemia. 4. Gait instability. 5. History of ileostomy. 6. Chronic kidney disease. 7. Seizure disorder. 8. Chronic pain. 9. Osteoarthritis. MEDICATIONS: Amlodipine 5 mg one daily. PAST SURGICAL HISTORY: 1. Ileostomy, colostomy. 2. ORIF of right patellar fracture. ALLERGIES: NO KNOWN DRUG ALLERGIES. FAMILY HISTORY: 1. Maternal history of cancer. 2. Paternal history of diabetes. REVIEW OF SYSTEMS: 10-point review of systems is negative aside from what is listed in the history of present illness. PHYSICAL EXAMINATION: VITAL SIGNS: Temperature 101.3, pulse 75, respirations 20, oxygen 97% on room air, blood pressure 151/74. GENERAL: Patient is alert and oriented x3, in no apparent distress. Seated comfortably at the bedside. HEENT: Normocephalic, atraumatic. Extraocular muscles intact. Moist mucous membranes. CARDIOVASCULAR: Regular rhythm. No murmurs, rubs, or gallops. RESPIRATORY: Clear to auscultation bilaterally. No wheezes, rhonchi, crackles. ABDOMEN: Soft, nontender to palpation. Normoactive bowel sounds. EXTREMITIES: Bilateral wrist with increased edema and warmth with pain with range of motion. Calves nontender to palpation. No palpable cords. SKIN: No rashes. Warm and dry. NEUROLOGICAL: Cranial nerves 2 through 12 intact grossly. No focal deficits. PSYCHIATRIC: Appropriate mood and affect. ASSESSMENT AND PLAN: The patient is a 75-year-old female, who was admitted for: 1. Physical deconditioning. We will order physical therapy and occupational therapy. 2. Fever with uncertain source. We will order cultures. We will order coronavirus disease test and influenza test. Patiently will be placed on contact isolation precautions until coronavirus disease return. We will obtain urine cultures and blood cultures as well. We will treat empirically with antibiotics until results returned. 3. Seizure disorder. We will continue home Keppra. 4. Chronic obstructive pulmonary disease. We will resume patient's home inhalers. 5. Essential hypertension. We will resume patient's home antihypertensive regimen. 6. Chronic pain due to osteoarthritis. We will treat conservatively. The patient has been on tramadol for pain in the past. We will discontinue this, however, because it can lower seizure threshold. 7. Disposition: Stable. 8. Deep venous thrombosis prophylaxis: SCDs. Job ID: [id number]
[2020-07-20] MEDS: Acetaminophen 325 MG TAB PO PRN (10:04)
[2020-07-20] MEDS: Gabapentin 300 MG CAP PO SCH ×2 (10:05→21:54)
[2020-07-20] MEDS: Amlodipine 5 MG TAB PO SCH (10:06)
[2020-07-20] MEDS: levETIRAcetam 500 MG TAB PO SCH ×2 (10:06→21:54)
[2020-07-20] MEDS: predniSONE 20 MG TAB PO SCH (10:06)
[2020-07-20] MEDS: Carvedilol 3.125 MG TAB PO SCH ×2 (10:07→21:53)
[2020-07-20] MEDS: Sodium Bicarbonate Tab 325 MG TAB PO SCH ×2 (10:07→21:53)
[2020-07-20] MEDS: Mometasone/Formoterol 200/5 60 PUFF INH SCH ×2 (10:08→21:59)
[2020-07-20] MEDS: Cefdinir 300 MG CAP PO SCH ×2 (10:17→21:54)
[2020-07-20 12:08] LABS: SARS-CoV-2 MS2 Positive; SARS-CoV-2 N Gene Negative; SARS-CoV-2 S Gene Negative; SARS-CoV-2 by NAA Not Detected (NotDetected); SARS-CoV-2 orf1ab Negative
[2020-07-20] MEDS: Atorvastatin Calcium 10 MG TAB PO SCH (21:55)
[2020-07-21] MEDS: Acetaminophen 325 MG TAB PO PRN ×2 (03:38→08:22)
[2020-07-21] MEDS: predniSONE 20 MG TAB PO SCH (08:21)
[2020-07-21] MEDS: Gabapentin 300 MG CAP PO SCH ×2 (08:21→20:15)
[2020-07-21] MEDS: Cefdinir 300 MG CAP PO SCH ×2 (08:21→20:14)
[2020-07-21] MEDS: levETIRAcetam 500 MG TAB PO SCH ×2 (08:23→20:16)
[2020-07-21] MEDS: Carvedilol 3.125 MG TAB PO SCH ×2 (08:23→20:16)
[2020-07-21] MEDS: Amlodipine 5 MG TAB PO SCH (08:23)
[2020-07-21] MEDS: Sodium Bicarbonate Tab 325 MG TAB PO SCH ×2 (08:23→20:14)
[2020-07-21] MEDS: Mometasone/Formoterol 200/5 60 PUFF INH SCH ×2 (08:40→20:14)
[2020-07-21] MEDS: Atorvastatin Calcium 10 MG TAB PO SCH (20:15)
[2020-07-22] MEDS: Acetaminophen 325 MG TAB PO PRN (07:49)
[2020-07-22] MEDS: predniSONE 20 MG TAB PO SCH (08:48)
[2020-07-22] MEDS: Amlodipine 5 MG TAB PO SCH (08:48)
[2020-07-22] MEDS: Sodium Bicarbonate Tab 325 MG TAB PO SCH ×2 (08:48→20:03)
[2020-07-22] MEDS: Cefdinir 300 MG CAP PO SCH ×2 (08:49→20:05)
[2020-07-22] MEDS: Gabapentin 300 MG CAP PO SCH ×2 (08:49→20:04)
[2020-07-22] MEDS: levETIRAcetam 500 MG TAB PO SCH ×2 (08:49→20:04)
[2020-07-22] MEDS: Carvedilol 3.125 MG TAB PO SCH ×2 (08:49→20:04)
[2020-07-22] MEDS: Mometasone/Formoterol 200/5 60 PUFF INH SCH ×2 (08:51→20:06)
[2020-07-22] MEDS: Atorvastatin Calcium 10 MG TAB PO SCH (20:03)
[2020-07-23] MEDS: Mometasone/Formoterol 200/5 60 PUFF INH SCH ×2 (08:50→20:23)
[2020-07-23] MEDS: levETIRAcetam 500 MG TAB PO SCH ×2 (08:52→20:22)
[2020-07-23] MEDS: Cefdinir 300 MG CAP PO SCH ×2 (08:52→20:22)
[2020-07-23] MEDS: Sodium Bicarbonate Tab 325 MG TAB PO SCH ×2 (08:52→20:21)
[2020-07-23] MEDS: predniSONE 20 MG TAB PO SCH (08:53)
[2020-07-23] MEDS: Carvedilol 3.125 MG TAB PO SCH ×2 (08:53→20:22)
[2020-07-23] MEDS: Amlodipine 5 MG TAB PO SCH (08:53)
[2020-07-23] MEDS: Gabapentin 300 MG CAP PO SCH ×2 (08:53→20:22)
[2020-07-23] MEDS: Acetaminophen 325 MG TAB PO PRN (09:00)
[2020-07-23] MEDS: Atorvastatin Calcium 10 MG TAB PO SCH (20:21)
[2020-07-24] MEDS: Acetaminophen 325 MG TAB PO PRN ×2 (04:13→12:50)
[2020-07-24] MEDS: Amlodipine 5 MG TAB PO SCH (08:53)
[2020-07-24] MEDS: Cefdinir 300 MG CAP PO SCH ×2 (08:53→19:58)
[2020-07-24] MEDS: levETIRAcetam 500 MG TAB PO SCH ×2 (08:53→19:58)
[2020-07-24] MEDS: predniSONE 20 MG TAB PO SCH (08:55)
[2020-07-24] MEDS: Gabapentin 300 MG CAP PO SCH ×2 (08:55→19:56)
[2020-07-24] MEDS: Sodium Bicarbonate Tab 325 MG TAB PO SCH ×2 (08:56→19:58)
[2020-07-24] MEDS: Mometasone/Formoterol 200/5 60 PUFF INH SCH ×2 (08:56→19:54)
[2020-07-24] MEDS: Carvedilol 3.125 MG TAB PO SCH ×2 (08:56→19:58)
[2020-07-24 14:16] LABS: #Lymphocytes 0.6 thou/uL (1.20-3.40); #Monocytes 0.3 thou/uL (0.11-0.59); #Neutrophils 11.1 thou/uL (1.40-6.50); %Basophils 0.2 % (0.0-1.0); %Eosinophils 0.2 % (0.0-10.0); %Lymphocytes 5.1 % (21.0-51.0); %Monocytes 2.6 % (0.0-10.0); %Neutrophils 91.9 % (42.0-75.0); Hemoglobin 8.7 g/dL (12.0-16.0); Mean Corpuscular HGB CONC 30.7 g/dL (32.0-36.0); Mean Corpuscular Hemoglobin 30.1 pg (27.0-31.0); Mean Corpuscular Volume 98.1 fL (78.0-98.0); Mean Platelet Volume 6.3 fL (7.4-10.4); Platelet Count 370 thou/uL (130-400); RBC Distribution Width 13.2 % (11.5-14.5); White Blood Cell (WBC) Count 12.1 thou/uL (4.8-10.8)
[2020-07-24 14:29] LABS: Anion Gap 15 mmol/L (10-20); BUN (Urea Nitrogen) 41 mg/dL (9.8-20.1); Calc. Creatinine Clearance 50 mL/min (70-130); Calcium 8.3 mg/dL (7.8-10.44); Carbon Dioxide 23 mmol/L (23-31); Chloride 106 mmol/L (98-107); Estimated GFR-MDRD 41; Glucose 199 mg/dL (83-110); Potassium 5.5 mmol/L (3.5-5.1); Sodium 138 mmol/L (136-145)
[2020-07-24] MEDS: Atorvastatin Calcium 10 MG TAB PO SCH (19:57)
[2020-07-25 05:50] LABS: Anion Gap 13 mmol/L (10-20); BUN (Urea Nitrogen) 38 mg/dL (9.8-20.1); Calc. Creatinine Clearance 59 mL/min (70-130); Carbon Dioxide 24 mmol/L (23-31); Chloride 108 mmol/L (98-107); Estimated GFR-MDRD 50; Glucose 116 mg/dL (83-110); Potassium 5.3 mmol/L (3.5-5.1); Sodium 140 mmol/L (136-145)
[2020-07-25] MEDS: Sodium Bicarbonate Tab 325 MG TAB PO SCH ×2 (08:30→20:17)
[2020-07-25] MEDS: levETIRAcetam 500 MG TAB PO SCH ×2 (08:30→20:18)
[2020-07-25] MEDS: Carvedilol 3.125 MG TAB PO SCH ×2 (08:30→20:18)
[2020-07-25] MEDS: Allopurinol 100 MG TAB PO SCH (08:31)
[2020-07-25] MEDS: Amlodipine 5 MG TAB PO SCH (08:31)
[2020-07-25] MEDS: Cefdinir 300 MG CAP PO SCH ×2 (08:31→20:18)
[2020-07-25] MEDS: Gabapentin 300 MG CAP PO SCH ×2 (08:31→20:18)
[2020-07-25] MEDS: Mometasone/Formoterol 200/5 60 PUFF INH SCH ×2 (08:32→20:18)
[2020-07-25] MEDS: Albuterol 200 PUFF (6.7GM INHALER) INH PRN (11:37)
[2020-07-25] MEDS: Atorvastatin Calcium 10 MG TAB PO SCH (20:17)
[2020-07-26] MEDS: Acetaminophen 325 MG TAB PO PRN (04:15)
[2020-07-26] MEDS: Albuterol 200 PUFF (6.7GM INHALER) INH PRN (04:15)
[2020-07-26] MEDS: Mometasone/Formoterol 200/5 60 PUFF INH SCH ×2 (08:29→20:18)
[2020-07-26] MEDS: Sodium Bicarbonate Tab 325 MG TAB PO SCH ×2 (08:30→20:17)
[2020-07-26] MEDS: levETIRAcetam 500 MG TAB PO SCH ×2 (08:30→20:16)
[2020-07-26] MEDS: Amlodipine 5 MG TAB PO SCH (08:30)
[2020-07-26] MEDS: Allopurinol 100 MG TAB PO SCH (08:31)
[2020-07-26] MEDS: Carvedilol 3.125 MG TAB PO SCH ×2 (08:31→20:17)
[2020-07-26] MEDS: Gabapentin 300 MG CAP PO SCH ×2 (08:31→20:16)
[2020-07-26] MEDS: Atorvastatin Calcium 10 MG TAB PO SCH (20:17)
[2020-07-27] MEDS: Mometasone/Formoterol 200/5 60 PUFF INH SCH ×2 (09:01→20:40)
[2020-07-27] MEDS: Allopurinol 100 MG TAB PO SCH (09:02)
[2020-07-27] MEDS: Sodium Bicarbonate Tab 325 MG TAB PO SCH ×2 (09:02→20:38)
[2020-07-27] MEDS: levETIRAcetam 500 MG TAB PO SCH ×2 (09:02→20:40)
[2020-07-27] MEDS: Gabapentin 300 MG CAP PO SCH ×2 (09:02→20:39)
[2020-07-27] MEDS: Amlodipine 5 MG TAB PO SCH (09:02)
[2020-07-27] MEDS: Carvedilol 3.125 MG TAB PO SCH ×2 (09:03→20:40)
[2020-07-27 11:57] LABS: Anion Gap 14 mmol/L (10-20); BUN (Urea Nitrogen) 43 mg/dL (9.8-20.1); Calc. Creatinine Clearance 54 mL/min (70-130); Calcium 8.8 mg/dL (7.8-10.44); Carbon Dioxide 26 mmol/L (23-31); Chloride 105 mmol/L (98-107); Estimated GFR-MDRD 45; Glucose 94 mg/dL (83-110); Sodium 140 mmol/L (136-145)
[2020-07-27] MEDS: Albuterol 200 PUFF (6.7GM INHALER) INH PRN (16:38)
[2020-07-27] MEDS: Atorvastatin Calcium 10 MG TAB PO SCH (20:38)
[2020-07-28] MEDS: Mometasone/Formoterol 200/5 60 PUFF INH SCH ×2 (08:54→20:07)
[2020-07-28] MEDS: Amlodipine 5 MG TAB PO SCH (08:55)
[2020-07-28] MEDS: Sodium Bicarbonate Tab 325 MG TAB PO SCH ×2 (08:55→20:07)
[2020-07-28] MEDS: Gabapentin 300 MG CAP PO SCH ×2 (08:55→20:06)
[2020-07-28] MEDS: levETIRAcetam 500 MG TAB PO SCH ×2 (08:56→20:09)
[2020-07-28] MEDS: Carvedilol 3.125 MG TAB PO SCH ×2 (08:56→20:08)
[2020-07-28] MEDS: Allopurinol 100 MG TAB PO SCH (08:56)
[2020-07-28] MEDS: Acetaminophen 325 MG TAB PO PRN (14:29)
[2020-07-28] MEDS: Atorvastatin Calcium 10 MG TAB PO SCH (20:08)
[2020-07-29] MEDS: Albuterol 200 PUFF (6.7GM INHALER) INH PRN (02:51)
[2020-07-29] MEDS: Acetaminophen 325 MG TAB PO PRN (02:56)
[2020-07-29] MEDS: Gabapentin 300 MG CAP PO SCH ×2 (08:13→20:41)
[2020-07-29] MEDS: Carvedilol 3.125 MG TAB PO SCH ×2 (08:13→20:42)
[2020-07-29] MEDS: levETIRAcetam 500 MG TAB PO SCH ×2 (08:13→20:42)
[2020-07-29] MEDS: Sodium Bicarbonate Tab 325 MG TAB PO SCH ×2 (08:13→20:40)
[2020-07-29] MEDS: Amlodipine 5 MG TAB PO SCH (08:15)
[2020-07-29] MEDS: Mometasone/Formoterol 200/5 60 PUFF INH SCH ×2 (08:15→20:42)
[2020-07-29] MEDS: Allopurinol 100 MG TAB PO SCH (08:15)
[2020-07-29] MEDS: Atorvastatin Calcium 10 MG TAB PO SCH (20:41)
[2020-07-30] MEDS: Albuterol 200 PUFF (6.7GM INHALER) INH PRN ×2 (04:10→20:25)
[2020-07-30] MEDS: Mometasone/Formoterol 200/5 60 PUFF INH SCH ×2 (08:18→20:26)
[2020-07-30] MEDS: Sodium Bicarbonate Tab 325 MG TAB PO SCH ×2 (08:19→20:28)
[2020-07-30] MEDS: Gabapentin 300 MG CAP PO SCH ×2 (08:19→20:27)
[2020-07-30] MEDS: Allopurinol 100 MG TAB PO SCH (08:19)
[2020-07-30] MEDS: Carvedilol 3.125 MG TAB PO SCH ×2 (08:20→20:27)
[2020-07-30] MEDS: levETIRAcetam 500 MG TAB PO SCH ×2 (08:20→20:27)
[2020-07-30] MEDS: Amlodipine 5 MG TAB PO SCH (08:20)
[2020-07-30] MEDS: Atorvastatin Calcium 10 MG TAB PO SCH (20:27)
[2020-07-31] MEDS: Acetaminophen 325 MG TAB PO PRN ×3 (00:24→20:34)
[2020-07-31] MEDS: Albuterol 200 PUFF (6.7GM INHALER) INH PRN ×2 (00:24→17:55)
[2020-07-31] MEDS: Mometasone/Formoterol 200/5 60 PUFF INH SCH ×2 (09:11→20:32)
[2020-07-31] MEDS: Gabapentin 300 MG CAP PO SCH ×2 (09:13→20:33)
[2020-07-31] MEDS: Allopurinol 100 MG TAB PO SCH (09:13)
[2020-07-31] MEDS: Sodium Bicarbonate Tab 325 MG TAB PO SCH ×2 (09:13→20:33)
[2020-07-31] MEDS: Carvedilol 3.125 MG TAB PO SCH ×2 (09:13→20:33)
[2020-07-31] MEDS: Amlodipine 5 MG TAB PO SCH (09:13)
[2020-07-31] MEDS: levETIRAcetam 500 MG TAB PO SCH ×2 (09:14→20:33)
[2020-07-31 09:21] LABS: Anion Gap 14 mmol/L (10-20); BUN (Urea Nitrogen) 42 mg/dL (9.8-20.1); Calc. Creatinine Clearance 56 mL/min (70-130); Carbon Dioxide 25 mmol/L (23-31); Chloride 108 mmol/L (98-107); Estimated GFR-MDRD 47; Glucose 140 mg/dL (83-110); Potassium 4.2 mmol/L (3.5-5.1); Sodium 143 mmol/L (136-145)
[2020-07-31] MEDS: Atorvastatin Calcium 10 MG TAB PO SCH (20:33)
[2020-08-01] MEDS: Albuterol 200 PUFF (6.7GM INHALER) INH PRN (03:25)
[2020-08-01] MEDS: Acetaminophen 325 MG TAB PO PRN (03:28)
[2020-08-01 08:49] VITALS: BP 154/51; TEMP 97.6
[2020-08-01] MEDS: Mometasone/Formoterol 200/5 60 PUFF INH SCH (09:14)
[2020-08-01] MEDS: Sodium Bicarbonate Tab 325 MG TAB PO SCH (09:15)
[2020-08-01] MEDS: Allopurinol 100 MG TAB PO SCH (09:16)
[2020-08-01] MEDS: Carvedilol 3.125 MG TAB PO SCH (09:16)
[2020-08-01] MEDS: Amlodipine 5 MG TAB PO SCH (09:16)
[2020-08-01] MEDS: levETIRAcetam 500 MG TAB PO SCH (09:16)
[2020-08-01] MEDS: Gabapentin 300 MG CAP PO SCH (09:16)
== END 2020-08-01 15:15 | disposition home or self-care (01) | DRG 948 ==
LOC: MADMS 17:30
PROVIDERS: ADMIT Family Medicine; ATTEND Family Medicine
DX: R53.81 Other malaise (principal); J44.9 Chronic obstructive pulmonary disease, unspecified; G40.909 Epilepsy, unspecified, not intractable, without status epilepticus; N18.9 Chronic kidney disease, unspecified; E78.5 Hyperlipidemia, unspecified; M19.90 Unspecified osteoarthritis, unspecified site; G89.29 Other chronic pain; I12.9 Hypertensive chronic kidney disease with stage 1 through stage 4 chronic kidney disease, or unspecified chronic kidney disease; R50.9 Fever, unspecified; Z20.828 Contact with and (suspected) exposure to other viral communicable diseases; R26.89 Other abnormalities of gait and mobility; Z93.2 Ileostomy status; Z93.3 Colostomy status; Z98.890 Other specified postprocedural states
CPT/HCPCS: 36415; 36416; 80048; 81001; 83605; 84550; 85025; 87040; 87077; 87086; 87186; 87635; 87804; 90471; 90662; 94664; G0008; J0696; J7512; U0003

== ENCOUNTER 2020-08-06 07:36 | Emergency (ER) | payer MEDICARE, MEDICAID ==
[2020-08-06] MEDS ORDERED: Ibuprofen 400 MG TAB ONE (08:26)
[2020-08-06] MEDS ORDERED: Sodium Chloride 0.9% 1,000 ML ONE (08:26)
[2020-08-06 08:58] LABS: #Basophils 0.1 thou/uL (0.0-0.2); #Eosinphils 0.1 thou/uL (0.0-0.7); #Lymphocytes 1.8 thou/uL (1.20-3.40); #Monocytes 0.5 thou/uL (0.11-0.59); #Neutrophils 1.7 thou/uL (1.40-6.50); %Basophils 1.3 % (0.0-1.0); %Eosinophils 3.1 % (0.0-10.0); %Monocytes 11.8 % (0.0-10.0); %Neutrophils 40.8 % (42.0-75.0); Hemoglobin 7.8 g/dL (12.0-16.0); Mean Corpuscular HGB CONC 31.3 g/dL (32.0-36.0); Mean Corpuscular Hemoglobin 30.8 pg (27.0-31.0); Mean Corpuscular Volume 98.5 fL (78.0-98.0); Mean Platelet Volume 5.8 fL (7.4-10.4); Platelet Count 276 thou/uL (130-400); RBC Distribution Width 14.5 % (11.5-14.5); Red Blood Cell (RBC) Count 2.52 mill/uL (4.20-5.40); White Blood Cell (WBC) Count 4.2 thou/uL (4.8-10.8)
[2020-08-06 09:19] LABS: ALT (SGPT) 7 U/L (8-55); AST (SGOT) 13 U/L (5-34); Albumin 3.1 g/dL (3.4-4.8); Alkaline Phosphatase 50 U/L (40-110); Anion Gap 16 mmol/L (10-20); BUN (Urea Nitrogen) 28 mg/dL (9.8-20.1); Bilirubin, Total 0.3 mg/dL (0.2-1.2); CK (CPK) 33 U/L (29-168); Calc. Creatinine Clearance 0 mL/min (70-130); Calcium 7.9 mg/dL (7.8-10.44); Carbon Dioxide 25 mmol/L (23-31); Chloride 103 mmol/L (98-107); Globulin 3.5 g/dL (2.4-3.5); Glucose 95 mg/dL (83-110); Potassium 3.7 mmol/L (3.5-5.1); Protein, Total 6.6 g/dL (6.0-8.3); Sodium 140 mmol/L (136-145)
--- NOTE | 2020-08-06 09:25 | RAD ---
PORTABLE CHEST 1 VIEW: Date: 08/06/2020 Time: 0908 hours HISTORY: Cough. COMPARISON: 07/14/2020. FINDINGS/IMPRESSION: The heart size is normal. The aorta is tortuous. There is a plate of linear atelectasis in the right lower lung. No lobar consolidation, pneumothoraces, or large effusions are seen. POS: [facility]
[2020-08-06] MEDS ORDERED: Sodium Chloride 0.9% 100 ML ONE (09:36)
[2020-08-06] MEDS ORDERED: Cefepime 2 GM VIAL ONE (09:37)
[2020-08-06] MEDS ORDERED: Enoxaparin Sodium 40 MG/0.4 ML SYRINGE ONE (11:09)
== END 2020-08-06 11:42 | disposition short-term general hospital (02) ==
LOC: MADERS 07:36
DX: J18.9 Pneumonia, unspecified organism (principal); D64.9 Anemia, unspecified; R79.1 Abnormal coagulation profile; I10 Essential (primary) hypertension; J44.9 Chronic obstructive pulmonary disease, unspecified; E11.9 Type 2 diabetes mellitus without complications; E78.5 Hyperlipidemia, unspecified; E78.00 Pure hypercholesterolemia, unspecified; E66.9 Obesity, unspecified; Z87.891 Personal history of nicotine dependence; Z79.899 Other long term (current) drug therapy
CPT/HCPCS: 36415; 71045; 80053; 82550; 83605; 83880; 84484; 85025; 85379; 87040; 87804; 96365; 96367; 96372; J0692; J1650; J1956; J3490; J7050

== ENCOUNTER 2021-02-12 11:47 | Emergency (ER) | payer MEDICARE, MEDICAID ==
[2021-02-12 12:58] LABS: #Eosinphils 0.4 thou/uL (0.0-0.7); #Lymphocytes 1.4 thou/uL (1.20-3.40); #Monocytes 0.4 thou/uL (0.11-0.59); #Neutrophils 5.6 thou/uL (1.40-6.50); %Basophils 0.4 % (0.0-1.0); %Eosinophils 4.8 % (0.0-10.0); %Lymphocytes 17.7 % (21.0-51.0); %Monocytes 5.7 % (0.0-10.0); %Neutrophils 71.4 % (42.0-75.0); Hemoglobin 7.7 g/dL (12.0-16.0); Mean Corpuscular HGB CONC 28.5 g/dL (32.0-36.0); Mean Corpuscular Hemoglobin 27.1 pg (27.0-31.0); Mean Corpuscular Volume 94.8 fL (78.0-98.0); Platelet Count 426 thou/uL (130-400); RBC Distribution Width 16.8 % (11.5-14.5); Red Blood Cell (RBC) Count 2.84 mill/uL (4.20-5.40); White Blood Cell (WBC) Count 7.8 thou/uL (4.8-10.8)
[2021-02-12 12:59] LABS: ALT (SGPT) Less than 7 U/L (8-55); AST (SGOT) 6 U/L (5-34); Albumin 3.5 g/dL (3.4-4.8); Alkaline Phosphatase 62 U/L (40-110); Anion Gap 17 mmol/L (10-20); BUN (Urea Nitrogen) 58 mg/dL (9.8-20.1); Bilirubin, Total 0.2 mg/dL (0.2-1.2); CK (CPK) 35 U/L (29-168); Calc. Creatinine Clearance 0 mL/min (70-130); Calcium 8.7 mg/dL (7.8-10.44); Carbon Dioxide 26 mmol/L (23-31); Chloride 104 mmol/L (98-107); Globulin 3.7 g/dL (2.4-3.5); Glucose 118 mg/dL (83-110); Potassium 4.4 mmol/L (3.5-5.1); Protein, Total 7.2 g/dL (5.8-8.1); Sodium 143 mmol/L (136-145)
[2021-02-12 13:04] LABS: Anisocytosis SLIGHT = 6-15 cells (100X) (0-5/hpf); Hypochromia SLIGHT = 6-15 cells (100X) (0-5/hpf); Platelet Morphology Comment Appears Increased
[2021-02-12 13:51] LABS: Bilirubin Negative (Negative); Blood, Urine Negative (Negative); Clarity Clear (Clear); Glucose, Urine (Dipstick) Negative (Negative); Ketone, Urine Negative (Negative); Leukocyte Trace (Negative); Nitrite Negative (Negative); Protein, Urine (Dipstick) Negative (Neg-Trace); Specific Gravity, Urine 1.006 (1.002-1.036); Urobilinogen 0.2 mg/dL (Less than 2)
[2021-02-12 13:55] LABS: Bacteria/HPF Rare-Few HPF (None Seen); RBC/HPF 0-3 HPF (0-3); Squamous Epithelial 0-3 HPF (0-3); WBC/HPF 0-3 HPF (0-3)
[2021-02-12] MEDS ORDERED: Fosphenytoin Sodium 500 mg/10 ml Vial ONE ×2 (21:14→21:18)
[2021-02-12] MEDS ORDERED: Sodium Chloride 0.9% 50 ML ONE (21:31)
[2021-02-12] MEDS ORDERED: Sodium Chloride 0.9% 500 ML ONE (22:17)
== END 2021-02-12 14:25 | disposition home or self-care (01) ==
LOC: MADERS 11:47
DX: I13.0 Hypertensive heart and chronic kidney disease with heart failure and stage 1 through stage 4 chronic kidney disease, or unspecified chronic kidney disease (principal); I50.9 Heart failure, unspecified; N18.9 Chronic kidney disease, unspecified; D63.1 Anemia in chronic kidney disease; J44.9 Chronic obstructive pulmonary disease, unspecified; E11.9 Type 2 diabetes mellitus without complications; E78.5 Hyperlipidemia, unspecified; E78.00 Pure hypercholesterolemia, unspecified; E66.9 Obesity, unspecified; Z87.891 Personal history of nicotine dependence
CPT/HCPCS: 36415; 80053; 81003; 81015; 82550; 85025; J7030; Q2009

== ENCOUNTER 2021-02-12 20:04 | Emergency (ER) | payer MEDICARE, MEDICAID ==
[2021-02-12] MEDS ORDERED: Sodium Chloride 0.9% 500 ML BAG ONE (21:14)
[2021-02-12] MEDS ORDERED: Fosphenytoin Sodium 500 mg/10 ml Vial ONE (21:14)
[2021-02-12] MEDS ORDERED: Sodium Chloride 0.9% 50 ML BAG ONE (21:14)
[2021-02-12] MEDS ORDERED: Norepinephrine 4 MG/4 ML VIAL ONE ×2 (21:14→22:55)
[2021-02-12 21:41] LABS: #Eosinphils 0.4 thou/uL (0.0-0.7); #Lymphocytes 1.2 thou/uL (1.20-3.40); #Monocytes 0.5 thou/uL (0.11-0.59); #Neutrophils 7.5 thou/uL (1.40-6.50); %Basophils 0.4 % (0.0-1.0); %Lymphocytes 12.3 % (21.0-51.0); %Neutrophils 78.3 % (42.0-75.0); Hemoglobin 8.1 g/dL (12.0-16.0); Mean Corpuscular HGB CONC 29.7 g/dL (32.0-36.0); Mean Corpuscular Hemoglobin 27.4 pg (27.0-31.0); Mean Corpuscular Volume 92.3 fL (78.0-98.0); Mean Platelet Volume 6.3 fL (7.4-10.4); Platelet Count 426 thou/uL (130-400); RBC Distribution Width 16.5 % (11.5-14.5); Red Blood Cell (RBC) Count 2.94 mill/uL (4.20-5.40); White Blood Cell (WBC) Count 9.5 thou/uL (4.8-10.8)
[2021-02-12 21:52] LABS: ALT (SGPT) Less than 7 U/L (8-55); AST (SGOT) 7 U/L (5-34); Acetaminophen Less than 6.0 mcg/mL (10.0-30.0); Albumin 3.6 g/dL (3.4-4.8); Alcohol Less than 10 mg/dL (Less than 10); Alkaline Phosphatase 66 U/L (40-110); Anion Gap 18 mmol/L (10-20); BUN (Urea Nitrogen) 58 mg/dL (9.8-20.1); Bilirubin, Total 0.2 mg/dL (0.2-1.2); Calc. Creatinine Clearance 0 mL/min (70-130); Calcium 8.8 mg/dL (7.8-10.44); Carbon Dioxide 25 mmol/L (23-31); Chloride 103 mmol/L (98-107); Globulin 3.9 g/dL (2.4-3.5); Glucose 121 mg/dL (83-110); Potassium 3.7 mmol/L (3.5-5.1); Protein, Total 7.5 g/dL (5.8-8.1); Salicylate Less than 8.0 mg/dL (15.0-30.0); Sodium 142 mmol/L (136-145)
[2021-02-12 22:17] LABS: CKMB 0.4 ng/mL (0-6.6)
== END 2021-02-13 00:40 | disposition short-term general hospital (02) ==
LOC: MADERS 20:04
DX: G40.909 Epilepsy, unspecified, not intractable, without status epilepticus (principal); I13.2 Hypertensive heart and chronic kidney disease with heart failure and with stage 5 chronic kidney disease, or end stage renal disease; I50.9 Heart failure, unspecified; N18.9 Chronic kidney disease, unspecified; R79.89 Other specified abnormal findings of blood chemistry; I95.9 Hypotension, unspecified; D50.9 Iron deficiency anemia, unspecified; J44.9 Chronic obstructive pulmonary disease, unspecified; E78.5 Hyperlipidemia, unspecified; E78.00 Pure hypercholesterolemia, unspecified; E66.9 Obesity, unspecified; Z87.891 Personal history of nicotine dependence; Z79.899 Other long term (current) drug therapy
CPT/HCPCS: 36415; 70450; 80053; 80307; 81003; 81015; 82550; 82553; 84484; 85025; 93005; 96365; 96366; 96367; J7030; J7070; Q2009

== ENCOUNTER 2021-07-06 00:21 | Emergency (ER) | payer MEDICARE, MEDICAID ==
[2021-07-06 01:00] LABS: #Basophils 0.1 thou/uL (0.0-0.2); #Eosinphils 0.2 thou/uL (0.0-0.7); #Lymphocytes 1.5 thou/uL (1.20-3.40); #Monocytes 0.4 thou/uL (0.11-0.59); #Neutrophils 9.2 thou/uL (1.40-6.50); %Basophils 0.6 % (0.0-1.0); %Lymphocytes 13.3 % (21.0-51.0); %Monocytes 3.9 % (0.0-10.0); %Neutrophils 80.2 % (42.0-75.0); Hemoglobin 13.6 g/dL (12.0-16.0); Mean Corpuscular HGB CONC 31.8 g/dL (32.0-36.0); Mean Corpuscular Hemoglobin 31.9 pg (27.0-31.0); Mean Corpuscular Volume 100.3 fL (78.0-98.0); Mean Platelet Volume 6.6 fL (7.4-10.4); Platelet Count 338 thou/uL (130-400); RBC Distribution Width 12.7 % (11.5-14.5); Red Blood Cell (RBC) Count 4.27 mill/uL (4.20-5.40); White Blood Cell (WBC) Count 11.5 thou/uL (4.8-10.8)
[2021-07-06] MEDS ORDERED: levETIRAcetam 500 MG/100 ML PREMIX BAG ONE (01:03)
[2021-07-06] MEDS ORDERED: levETIRAcetam 500 MG/5 ML VIAL ONE (01:03)
[2021-07-06 01:56] LABS: Acetaminophen Less than 6.0 mcg/mL (10.0-30.0); Alcohol Less than 10 mg/dL (Less than 10); Salicylate Less than 8.0 mg/dL (15.0-30.0)
[2021-07-06 02:01] LABS: ALT (SGPT) 7 U/L (8-55); AST (SGOT) 18 U/L (5-34); Albumin 3.9 g/dL (3.4-4.8); Alkaline Phosphatase 82 U/L (40-110); Anion Gap 20 mmol/L (10-20); BUN (Urea Nitrogen) 47 mg/dL (9.8-20.1); Bilirubin, Total 0.3 mg/dL (0.2-1.2); CK (CPK) 138 U/L (29-168); Calc. Creatinine Clearance 0 mL/min (70-130); Calcium 9.5 mg/dL (7.8-10.44); Carbon Dioxide 21 mmol/L (23-31); Chloride 105 mmol/L (98-107); Globulin 3.7 g/dL (2.4-3.5); Glucose 176 mg/dL (83-110); Potassium 3.7 mmol/L (3.5-5.1); Protein, Total 7.6 g/dL (5.8-8.1); Sodium 142 mmol/L (136-145)
[2021-07-06 02:28] LABS: Bilirubin Negative (Negative); Blood, Urine Trace (Negative); Clarity Clear (Clear); Glucose, Urine (Dipstick) Negative (Negative); Ketone, Urine Negative (Negative); Leukocyte Negative (Negative); Nitrite Negative (Negative); Protein, Urine (Dipstick) Negative (Neg-Trace); Specific Gravity, Urine 1.015 (1.005-1.030); Urobilinogen 0.2 mg/dL (Less than 2); pH, Urine 5.5 (5.0-9.0)
[2021-07-06 02:37] LABS: Bacteria/HPF None Seen HPF (None Seen); RBC/HPF None Seen HPF (0-3); Renal Epithelial None Seen HPF (None Seen); Squamous Epithelial 0-3 HPF (0-3); Transitional Epithelial 0-3 HPF (None Seen); WBC/HPF 0-3 HPF (0-3)
[2021-07-06 02:38] LABS: Amphetamine Not Detected (NotDetected); Barbiturates Screen Not Detected (NotDetected); Benzodiazepine Screen Not Detected (NotDetected); Cocaine Metabolite Screen Not Detected (NotDetected); Medtox Control Line Valid? VALID (VALID); Methadone Not Detected (NotDetected); Methamphetamine Not Detected (NotDetected); Opiate Screen Not Detected (NotDetected); Oxycodone Screen Not Detected (NotDetected); Phencyclidine (PCP) Not Detected (NotDetected); THC/Cannabinoid Screen Not Detected (NotDetected); Tricyclic Screen Not Detected (NotDetected)
== END 2021-07-06 03:18 | disposition home or self-care (01) ==
LOC: MADERS 00:21
DX: G40.909 Epilepsy, unspecified, not intractable, without status epilepticus (principal); E86.0 Dehydration; R00.0 Tachycardia, unspecified; J44.9 Chronic obstructive pulmonary disease, unspecified; I11.0 Hypertensive heart disease with heart failure; I50.9 Heart failure, unspecified; E11.9 Type 2 diabetes mellitus without complications; E78.5 Hyperlipidemia, unspecified; E78.00 Pure hypercholesterolemia, unspecified; E66.9 Obesity, unspecified; Z87.891 Personal history of nicotine dependence; Z79.899 Other long term (current) drug therapy
CPT/HCPCS: 51701; 71045; 80053; 80306; 80307; 81003; 81015; 82550; 84443; 84484; 85025; 93005; 96365; J1953

== ENCOUNTER 2021-08-16 21:02 | Emergency (ER) | payer MEDICARE, MEDICAID ==
[2021-08-16] MEDS ORDERED: levETIRAcetam 500 MG/100 ML PREMIX BAG ONE (21:22)
[2021-08-16] MEDS ORDERED: levETIRAcetam 500 MG/5 ML VIAL ONE (21:22)
[2021-08-16 21:55] LABS: #Eosinphils 0.4 thou/uL (0.0-0.7); #Lymphocytes 1.5 thou/uL (1.20-3.40); #Monocytes 0.5 thou/uL (0.11-0.59); #Neutrophils 7.1 thou/uL (1.40-6.50); %Basophils 0.5 % (0.0-1.0); %Eosinophils 4.5 % (0.0-10.0); %Lymphocytes 15.6 % (21.0-51.0); %Neutrophils 74.5 % (42.0-75.0); Hemoglobin 11.2 g/dL (12.0-16.0); Mean Corpuscular HGB CONC 30.5 g/dL (32.0-36.0); Mean Corpuscular Hemoglobin 31.5 pg (27.0-31.0); Mean Corpuscular Volume 103.1 fL (78.0-98.0); Mean Platelet Volume 5.9 fL (7.4-10.4); Platelet Count 319 thou/uL (130-400); RBC Distribution Width 13.3 % (11.5-14.5); Red Blood Cell (RBC) Count 3.54 mill/uL (4.20-5.40); White Blood Cell (WBC) Count 9.6 thou/uL (4.8-10.8)
[2021-08-16 22:09] LABS: ALT (SGPT) Less than 7 U/L (8-55); AST (SGOT) 12 U/L (5-34); Albumin 3.7 g/dL (3.4-4.8); Alkaline Phosphatase 75 U/L (40-110); Anion Gap 19 mmol/L (10-20); BUN (Urea Nitrogen) 35 mg/dL (9.8-20.1); Bilirubin, Total 0.3 mg/dL (0.2-1.2); Calc. Creatinine Clearance 0 mL/min (70-130); Calcium 9.3 mg/dL (7.8-10.44); Carbon Dioxide 26 mmol/L (23-31); Chloride 101 mmol/L (98-107); Globulin 4.3 g/dL (2.4-3.5); Glucose 138 mg/dL (83-110); Potassium 3.9 mmol/L (3.5-5.1); Sodium 142 mmol/L (136-145)
== END 2021-08-17 00:48 | disposition home or self-care (01) ==
LOC: MADERS 21:02
DX: G40.909 Epilepsy, unspecified, not intractable, without status epilepticus (principal); S01.512A Laceration without foreign body of oral cavity, initial encounter; D63.1 Anemia in chronic kidney disease; I13.0 Hypertensive heart and chronic kidney disease with heart failure and stage 1 through stage 4 chronic kidney disease, or unspecified chronic kidney disease; N18.9 Chronic kidney disease, unspecified; E11.22 Type 2 diabetes mellitus with diabetic chronic kidney disease; J45.909 Unspecified asthma, uncomplicated; E78.5 Hyperlipidemia, unspecified; E78.00 Pure hypercholesterolemia, unspecified; E66.9 Obesity, unspecified; F17.210 Nicotine dependence, cigarettes, uncomplicated
CPT/HCPCS: 80053; 85025; 94760; J1953; 96374

== ENCOUNTER 2021-08-20 15:52 | Outpatient (CLI) | payer MEDICARE, MEDICAID ==
[2021-08-20 17:03] LABS: #Basophils 0.1 thou/uL (0.0-0.2); #Eosinphils 0.5 thou/uL (0.0-0.7); #Lymphocytes 1.8 thou/uL (1.20-3.40); #Monocytes 0.6 thou/uL (0.11-0.59); #Neutrophils 8.4 thou/uL (1.40-6.50); %Basophils 0.5 % (0.0-1.0); %Eosinophils 4.6 % (0.0-10.0); %Lymphocytes 15.5 % (21.0-51.0); %Monocytes 5.4 % (0.0-10.0); %Neutrophils 74.1 % (42.0-75.0); Hemoglobin 12.7 g/dL (12.0-16.0); Mean Corpuscular Hemoglobin 31.3 pg (27.0-31.0); Mean Corpuscular Volume 104.2 fL (78.0-98.0); Platelet Count 299 thou/uL (130-400); RBC Distribution Width 13.2 % (11.5-14.5); Red Blood Cell (RBC) Count 4.05 mill/uL (4.20-5.40); White Blood Cell (WBC) Count 11.3 thou/uL (4.8-10.8)
[2021-08-20 17:17] LABS: ALT (SGPT) Less than 7 U/L (8-55); AST (SGOT) 11 U/L (5-34); Albumin 4.3 g/dL (3.4-4.8); Alkaline Phosphatase 94 U/L (40-110); Anion Gap 18 mmol/L (10-20); BUN (Urea Nitrogen) 23 mg/dL (9.8-20.1); Bilirubin, Total 0.5 mg/dL (0.2-1.2); Calc. Creatinine Clearance 0 mL/min (70-130); Carbon Dioxide 31 mmol/L (23-31); Cardiac Risk 2.9 (Less than 4.5); Chloride 96 mmol/L (98-107); Cholesterol 163 mg/dl (< 200 Desired); Globulin 4.1 g/dL (2.4-3.5); Glucose 119 mg/dL (83-110); HDL Cholesterol 56 mg/dL (>60 Neg Risk); LDL Cholesterol, Calculated 89 mg/dL; Protein, Total 8.4 g/dL (5.8-8.1); Sodium 141 mmol/L (136-145); Triglycerides 91 mg/dL (Less than 150)
== END 2021-08-20 15:53 | disposition home or self-care (01) ==
LOC: MADRAD 15:52 → MADLAB 15:53
PROVIDERS: ATTEND Registered Nurse Community Health
DX: Z13.9 Encounter for screening, unspecified (principal); S89.91XA Unspecified injury of right lower leg, initial encounter; S20.302A Unspecified superficial injuries of left front wall of thorax, initial encounter; G40.909 Epilepsy, unspecified, not intractable, without status epilepticus; M17.11 Unilateral primary osteoarthritis, right knee; M81.0 Age-related osteoporosis without current pathological fracture
CPT/HCPCS: 36415; 80053; 80061; 80177; 84443; 85025

== ENCOUNTER 2022-06-08 22:49 | Emergency (ER) | payer MEDICARE, MEDICAID ==
[2022-06-08] MEDS ORDERED: Lorazepam 2 MG/ML VIAL ONE (23:17)
[2022-06-08] MEDS ORDERED: levETIRAcetam 500 MG/5 ML VIAL ONE (23:21)
[2022-06-08 23:36] LABS: #Basophils 0.1 thou/uL (0.0-0.2); #Eosinphils 0.2 thou/uL (0.0-0.7); #Lymphocytes 2.4 thou/uL (1.20-3.40); #Monocytes 0.6 thou/uL (0.11-0.59); #Neutrophils 7.3 thou/uL (1.40-6.50); %Basophils 0.6 % (0.0-1.0); %Eosinophils 1.8 % (0.0-10.0); %Lymphocytes 22.7 % (21.0-51.0); %Monocytes 5.5 % (0.0-10.0); %Neutrophils 69.3 % (42.0-75.0); Hemoglobin 11.2 g/dL (12.0-16.0); Mean Corpuscular HGB CONC 30.3 g/dL (32.0-36.0); Mean Corpuscular Hemoglobin 30.5 pg (27.0-31.0); Mean Corpuscular Volume 100.6 fL (78.0-98.0); Platelet Count 260 thou/uL (130-400); RBC Distribution Width 14.5 % (11.5-14.5); Red Blood Cell (RBC) Count 3.66 mill/uL (4.20-5.40); White Blood Cell (WBC) Count 10.5 thou/uL (4.8-10.8)
[2022-06-08] MEDS ORDERED: Sodium Chloride 0.9% 100 ML ONE (23:43)
[2022-06-08 23:57] LABS: ALT (SGPT) Less than 7 U/L (8-55); AST (SGOT) 10 U/L (5-34); Alkaline Phosphatase 74 U/L (40-110); Anion Gap 22 mmol/L (10-20); BUN (Urea Nitrogen) 24 mg/dL (9.8-20.1); Bilirubin, Total 0.4 mg/dL (0.2-1.2); Calc. Creatinine Clearance 0 mL/min (70-130); Calcium 9.4 mg/dL (7.8-10.44); Carbon Dioxide 17 mmol/L (23-31); Chloride 105 mmol/L (98-107); Estimated GFR 31; Globulin 4.1 g/dL (2.4-3.5); Glucose 150 mg/dL (83-110); Potassium 3.5 mmol/L (3.5-5.1); Protein, Total 8.1 g/dL (5.8-8.1); Sodium 140 mmol/L (136-145)
== END 2022-06-09 04:03 | disposition home or self-care (01) ==
LOC: MADERS 22:49
DX: G40.409 Other generalized epilepsy and epileptic syndromes, not intractable, without status epilepticus (principal); M54.2 Cervicalgia; I11.0 Hypertensive heart disease with heart failure; I50.9 Heart failure, unspecified; J44.9 Chronic obstructive pulmonary disease, unspecified; E11.9 Type 2 diabetes mellitus without complications; E78.00 Pure hypercholesterolemia, unspecified; E66.9 Obesity, unspecified; Z91.14 Patient's other noncompliance with medication regimen; Z87.891 Personal history of nicotine dependence; Z79.899 Other long term (current) drug therapy
CPT/HCPCS: 80053; 85025; 96365; 96375; 99284; J1953; J2060

== ENCOUNTER 2022-06-19 16:10 | Emergency (ER) | payer MEDICARE, MEDICAID ==
[2022-06-19 17:15] LABS: #Eosinphils 0.2 thou/uL (0.0-0.7); #Lymphocytes 1.4 thou/uL (1.20-3.40); #Monocytes 0.5 thou/uL (0.11-0.59); #Neutrophils 8.1 thou/uL (1.40-6.50); %Basophils 0.3 % (0.0-1.0); %Eosinophils 2.2 % (0.0-10.0); %Lymphocytes 13.5 % (21.0-51.0); %Monocytes 5.1 % (0.0-10.0); %Neutrophils 78.8 % (42.0-75.0); Hemoglobin 11.1 g/dL (12.0-16.0); Mean Corpuscular HGB CONC 31.1 g/dL (32.0-36.0); Mean Corpuscular Hemoglobin 31.8 pg (27.0-31.0); Mean Corpuscular Volume 102.5 fL (78.0-98.0); Mean Platelet Volume 6.3 fL (7.4-10.4); Platelet Count 287 thou/uL (130-400); RBC Distribution Width 14.3 % (11.5-14.5); Red Blood Cell (RBC) Count 3.48 mill/uL (4.20-5.40); White Blood Cell (WBC) Count 10.3 thou/uL (4.8-10.8)
[2022-06-19 17:31] LABS: ALT (SGPT) Less than 7 U/L (8-55); AST (SGOT) 10 U/L (5-34); Acetaminophen Less than 10.0 mcg/mL (10.0-30.0); Albumin 3.8 g/dL (3.4-4.8); Alcohol Less than 10 mg/dL (Less than 10); Alkaline Phosphatase 78 U/L (40-110); Anion Gap 14 mmol/L (10-20); BUN (Urea Nitrogen) 24 mg/dL (9.8-20.1); Bilirubin, Total 0.4 mg/dL (0.2-1.2); Calc. Creatinine Clearance 0 mL/min (70-130); Calcium 9.4 mg/dL (7.8-10.44); Carbon Dioxide 27 mmol/L (23-31); Chloride 102 mmol/L (98-107); Estimated GFR 29; Globulin 3.8 g/dL (2.4-3.5); Glucose 199 mg/dL (83-110); Lipase 49 U/L (8-78); Magnesium 1.9 mg/dL (1.6-2.6); Potassium 3.4 mmol/L (3.5-5.1); Protein, Total 7.6 g/dL (5.8-8.1); Salicylate Less than 8.0 mg/dL (15.0-30.0); Sodium 140 mmol/L (136-145)
[2022-06-19 17:39] LABS: Bilirubin Negative (Negative); Blood, Urine Negative (Negative); Clarity Clear (Clear); Glucose, Urine (Dipstick) Negative (Negative); Ketone, Urine Negative (Negative); Leukocyte Negative (Negative); Nitrite Negative (Negative); Protein, Urine (Dipstick) Negative (Neg-Trace); Specific Gravity, Urine 1.015 (1.005-1.030); Urobilinogen 0.2 mg/dL (Less than 2)
[2022-06-19 17:48] LABS: Amphetamine Not Detected (NotDetected); Barbiturates Screen Not Detected (NotDetected); Benzodiazepine Screen Not Detected (NotDetected); Cocaine Metabolite Screen Not Detected (NotDetected); Medtox Control Line Valid? VALID (VALID); Methadone Not Detected (NotDetected); Methamphetamine Not Detected (NotDetected); Opiate Screen Not Detected (NotDetected); Oxycodone Screen Not Detected (NotDetected); Phencyclidine (PCP) Not Detected (NotDetected); THC/Cannabinoid Screen Not Detected (NotDetected); Tricyclic Screen Not Detected (NotDetected)
[2022-06-19] MEDS ORDERED: Potassium Chloride 20 MEQ TAB ONE (18:39)
== END 2022-06-19 23:16 ==
LOC: MADERS 16:10
DX: R44.1 Visual hallucinations (principal); I13.0 Hypertensive heart and chronic kidney disease with heart failure and stage 1 through stage 4 chronic kidney disease, or unspecified chronic kidney disease; E11.22 Type 2 diabetes mellitus with diabetic chronic kidney disease; N18.9 Chronic kidney disease, unspecified; I50.9 Heart failure, unspecified; E11.65 Type 2 diabetes mellitus with hyperglycemia; R45.851 Suicidal ideations; J44.9 Chronic obstructive pulmonary disease, unspecified; E78.00 Pure hypercholesterolemia, unspecified; G40.409 Other generalized epilepsy and epileptic syndromes, not intractable, without status epilepticus; E66.9 Obesity, unspecified; Z87.891 Personal history of nicotine dependence; Z79.899 Other long term (current) drug therapy
CPT/HCPCS: 36415; 36416; 51701; 80053; 80306; 80307; 81003; 83690; 83735; 84443; 85025; 93005

== ENCOUNTER 2022-07-30 18:29 | Emergency (ER) | payer MEDICARE, MEDICAID ==
[2022-07-30 18:55] LABS: #Basophils 0.1 thou/uL (0.0-0.2); #Eosinphils 0.1 thou/uL (0.0-0.7); #Lymphocytes 1.5 thou/uL (1.20-3.40); #Monocytes 0.6 thou/uL (0.11-0.59); #Neutrophils 7.2 thou/uL (1.40-6.50); %Basophils 0.6 % (0.0-1.0); %Eosinophils 1.5 % (0.0-10.0); %Lymphocytes 16.3 % (21.0-51.0); %Monocytes 5.9 % (0.0-10.0); %Neutrophils 75.8 % (42.0-75.0); Hemoglobin 11.3 g/dL (12.0-16.0); Mean Corpuscular HGB CONC 32.3 g/dL (32.0-36.0); Mean Corpuscular Hemoglobin 32.3 pg (27.0-31.0); Mean Platelet Volume 5.5 fL (7.4-10.4); Platelet Count 316 10x3/uL (130-400); RBC Distribution Width 14.8 % (11.5-14.5); Red Blood Cell (RBC) Count 3.51 mill/uL (4.20-5.40); White Blood Cell (WBC) Count 9.4 10x3/uL (4.8-10.8)
[2022-07-30 19:03] LABS: Bilirubin Negative (Negative); Blood, Urine Trace (Negative); Glucose, Urine (Dipstick) Negative (Negative); Ketone, Urine Negative (Negative); Leukocyte Moderate (Negative); Nitrite Negative (Negative); Protein, Urine (Dipstick) 30 mg/dL (Neg-Trace); Urobilinogen 0.2 mg/dL (Less than 2)
[2022-07-30 19:04] LABS: Clarity Hazy (Clear)
[2022-07-30 19:09] LABS: RBC/HPF 0-3 HPF (0-3); WBC/HPF 21-50 HPF (0-3)
[2022-07-30 19:10] LABS: Bacteria/HPF Rare-Few HPF (None Seen)
[2022-07-30 19:14] LABS: ALT (SGPT) Less than 7 U/L (8-55); AST (SGOT) 12 U/L (5-34); Albumin 3.8 g/dL (3.4-4.8); Alkaline Phosphatase 77 U/L (40-110); Anion Gap 19 mmol/L (10-20); BUN (Urea Nitrogen) 23 mg/dL (9.8-20.1); Bilirubin, Total 0.6 mg/dL (0.2-1.2); CK (CPK) 48 U/L (29-168); Calc. Creatinine Clearance 0 mL/min (70-130); Calcium 9.2 mg/dL (7.8-10.44); Carbon Dioxide 22 mmol/L (23-31); Chloride 106 mmol/L (98-107); Estimated GFR 36; Globulin 4.1 g/dL (2.4-3.5); Glucose 147 mg/dL (83-110); Potassium 3.8 mmol/L (3.5-5.1); Protein, Total 7.9 g/dL (5.8-8.1); Sodium 143 mmol/L (136-145)
[2022-07-30] MEDS ORDERED: cefTRIAXone\\ROCEPHIN 1 GM VIAL ONE (20:11)
[2022-07-30] MEDS ORDERED: Sodium Chloride 0.9% 100 ML ONE (20:11)
[2022-07-30 21:34] LABS: Lactic Acid 1.2 mmol/L (0.5-2.2)
[2022-07-30] MEDS ORDERED: levETIRAcetam 500 MG TAB ONE (21:48)
== END 2022-07-30 22:48 | disposition home or self-care (01) ==
LOC: MADERS 18:29
DX: R56.9 Unspecified convulsions (principal); N39.0 Urinary tract infection, site not specified; J44.9 Chronic obstructive pulmonary disease, unspecified; I11.0 Hypertensive heart disease with heart failure; I50.9 Heart failure, unspecified; E11.9 Type 2 diabetes mellitus without complications; E78.00 Pure hypercholesterolemia, unspecified; E66.9 Obesity, unspecified; Z87.891 Personal history of nicotine dependence; Z79.899 Other long term (current) drug therapy
CPT/HCPCS: 80053; 81003; 81015; 82550; 83605; 84484; 85025; 87086; 93005; 96365; J0696; J3490; J7050

== ENCOUNTER 2022-08-08 02:55 | Emergency (ER) | payer MEDICARE, MEDICAID ==
[2022-08-08 04:01] LABS: #Eosinphils 0.2 thou/uL (0.0-0.7); #Lymphocytes 1.6 thou/uL (1.20-3.40); #Monocytes 0.5 thou/uL (0.11-0.59); %Basophils 0.2 % (0.0-1.0); %Eosinophils 2.5 % (0.0-10.0); %Lymphocytes 22.1 % (21.0-51.0); %Monocytes 6.2 % (0.0-10.0); Hemoglobin 12.9 g/dL (12.0-16.0); Mean Corpuscular HGB CONC 30.8 g/dL (32.0-36.0); Mean Corpuscular Hemoglobin 31.6 pg (27.0-31.0); Mean Corpuscular Volume 102.6 fl (78.0-98.0); Mean Platelet Volume 6.5 fL (7.4-10.4); Platelet Count 282 10x3/uL (130-400); Red Blood Cell (RBC) Count 4.07 mill/uL (4.20-5.40); White Blood Cell (WBC) Count 7.2 10x3/uL (4.8-10.8)
[2022-08-08 04:22] LABS: ALT (SGPT) Less than 7 U/L (8-55); AST (SGOT) 11 U/L (5-34); Albumin 3.8 g/dL (3.4-4.8); Alkaline Phosphatase 77 U/L (40-110); Anion Gap 16 mmol/L (10-20); BUN (Urea Nitrogen) 12 mg/dL (9.8-20.1); Bilirubin, Total 0.7 mg/dL (0.2-1.2); Calc. Creatinine Clearance 0 mL/min (70-130); Calcium 9.6 mg/dL (7.8-10.44); Carbon Dioxide 24 mmol/L (23-31); Chloride 106 mmol/L (98-107); Estimated GFR 43; Globulin 4.4 g/dL (2.4-3.5); Glucose 93 mg/dL (83-110); Potassium 3.6 mmol/L (3.5-5.1); Protein, Total 8.2 g/dL (5.8-8.1); Sodium 142 mmol/L (136-145)
[2022-08-08] MEDS ORDERED: levETIRAcetam 500 MG TAB ONE (04:44)
[2022-08-08 04:48] LABS: Bilirubin Negative (Negative); Blood, Urine Trace (Negative); Clarity Clear (Clear); Glucose, Urine (Dipstick) Negative (Negative); Ketone, Urine Negative (Negative); Leukocyte Negative (Negative); Nitrite Negative (Negative); Protein, Urine (Dipstick) 100 mg/dL (Neg-Trace); Specific Gravity, Urine 1.025 (1.005-1.030); Urobilinogen 0.2 mg/dL (Less than 2)
[2022-08-08 04:55] LABS: Bacteria/HPF None Seen HPF (None Seen); RBC/HPF 0-3 HPF (0-3); Squamous Epithelial 0-3 HPF (0-3); WBC/HPF 0-3 HPF (0-3)
== END 2022-08-08 05:33 | disposition home or self-care (01) ==
LOC: MADERS 02:55
DX: R56.9 Unspecified convulsions (principal); E11.9 Type 2 diabetes mellitus without complications; E78.00 Pure hypercholesterolemia, unspecified; J44.9 Chronic obstructive pulmonary disease, unspecified; I11.0 Hypertensive heart disease with heart failure; I50.9 Heart failure, unspecified; Z87.891 Personal history of nicotine dependence; Z79.899 Other long term (current) drug therapy
CPT/HCPCS: 51701; 80053; 80177; 81003; 81015; 83605; 85025; 87086

== ENCOUNTER 2022-11-02 19:04 | Emergency (ER) | payer MEDICAID, OTHER ==
[~2022-11-02 19:04] MED LIST changes: +Iopamidol 370 76% 125 ML VIAL FS ONE; -Sodium Chloride 0.9% 1,000 ML BAG ONE
[2022-11-02 20:02] LABS: #Eosinphils 0.1 thou/uL (0.0-0.7); #Lymphocytes 0.5 thou/uL (1.20-3.40); #Monocytes 0.4 thou/uL (0.11-0.59); #Neutrophils 6.6 thou/uL (1.40-6.50); %Basophils 0.4 % (0.0-1.0); %Eosinophils 0.8 % (0.0-10.0); %Lymphocytes 7.1 % (21.0-51.0); %Monocytes 4.7 % (0.0-10.0); %Neutrophils 87.1 % (42.0-75.0); Hemoglobin 11.1 g/dL (12.0-16.0); Mean Corpuscular HGB CONC 33.1 g/dL (32.0-36.0); Mean Corpuscular Hemoglobin 32.5 pg (27.0-31.0); Mean Corpuscular Volume 98.2 fl (78.0-98.0); Mean Platelet Volume 6.8 fL (7.4-10.4); Platelet Count 256 10x3/uL (130-400); RBC Distribution Width 12.1 % (11.5-14.5); Red Blood Cell (RBC) Count 3.41 mill/uL (4.20-5.40); White Blood Cell (WBC) Count 7.6 10x3/uL (4.8-10.8)
[2022-11-02 20:21] LABS: ALT (SGPT) Less than 7 U/L (8-55); AST (SGOT) 10 U/L (5-34); Albumin 3.6 g/dL (3.4-4.8); Alkaline Phosphatase 59 U/L (40-110); Anion Gap 15 mmol/L (10-20); BUN (Urea Nitrogen) 22 mg/dL (9.8-20.1); Bilirubin, Total 0.6 mg/dL (0.2-1.2); Calc. Creatinine Clearance 0 mL/min (70-130); Calcium 8.7 mg/dL (7.8-10.44); Carbon Dioxide 24 mmol/L (23-31); Chloride 105 mmol/L (98-107); Estimated GFR 36; Globulin 3.3 g/dL (2.4-3.5); Glucose 108 mg/dL (83-110); Potassium 3.6 mmol/L (3.5-5.1); Protein, Total 6.9 g/dL (5.8-8.1); Sodium 140 mmol/L (136-145)
[2022-11-02] MEDS ORDERED: Ipratropium/Albuterol 3 ML NEB ONE (20:26)
[2022-11-02] MEDS ORDERED: cefTRIAXone\\ROCEPHIN 1 GM VIAL ONE (23:40)
== END 2022-11-03 00:31 | disposition home or self-care (01) ==
LOC: MADERS 19:04
DX: J45.901 Unspecified asthma with (acute) exacerbation (principal); J18.9 Pneumonia, unspecified organism; R79.82 Elevated C-reactive protein (CRP); J44.9 Chronic obstructive pulmonary disease, unspecified; E11.9 Type 2 diabetes mellitus without complications; E78.00 Pure hypercholesterolemia, unspecified; E66.9 Obesity, unspecified; I11.0 Hypertensive heart disease with heart failure; I50.9 Heart failure, unspecified; Z79.899 Other long term (current) drug therapy; Z87.891 Personal history of nicotine dependence
CPT/HCPCS: 36415; 71045; 71275; 80053; 83605; 84484; 85025; 85379; 87040; 87077; 87186; 87804; 93005; 96374; J0696; J7620; Q9967

== ENCOUNTER 2023-10-03 11:42 | Emergency (ER) | payer MEDICARE, MEDICAID ==
[2023-10-03] MEDS ORDERED: methylPREDNISolone Acetate 80 mg (1 mL) VIAL ONE (12:41)
[2023-10-03] MEDS ORDERED: diphenhydrAMINE 25 MG CAP ONE (12:41)
== END 2023-10-03 13:38 | disposition home or self-care (01) ==
LOC: MADERS 11:42
DX: R22.0 Localized swelling, mass and lump, head (principal); T78.1XXA Other adverse food reactions, not elsewhere classified, initial encounter; J44.9 Chronic obstructive pulmonary disease, unspecified; I11.0 Hypertensive heart disease with heart failure; I50.9 Heart failure, unspecified; E78.00 Pure hypercholesterolemia, unspecified; E66.9 Obesity, unspecified; Z87.891 Personal history of nicotine dependence; Z79.899 Other long term (current) drug therapy
CPT/HCPCS: 96372; 99283; J1040

== ENCOUNTER 2023-10-15 10:34 | Emergency (ER) | payer MEDICARE, MEDICAID ==
[~2023-10-15 10:34] MED LIST changes: +Iopamidol 370 76% 100 ML VIAL ONE; -Iopamidol 370 76% 125 ML VIAL FS ONE
[2023-10-15] MEDS ORDERED: Fluorescein Opthalmic Strip ONE (11:15)
[2023-10-15] MEDS ORDERED: Tetracaine 0.5% PF 4 ML BOT ONE (11:15)
[2023-10-15 11:37] LABS: #Basophils 0.1 thou/uL (0.0-0.2); #Eosinphils 0.1 thou/uL (0.0-0.7); #Lymphocytes 1.2 thou/uL (1.20-3.40); #Monocytes 0.7 thou/uL (0.11-0.59); #Neutrophils 7.4 thou/uL (1.40-6.50); %Basophils 0.6 % (0.0-1.0); %Eosinophils 1.5 % (0.0-10.0); %Monocytes 7.3 % (0.0-10.0); %Neutrophils 77.7 % (42.0-75.0); Hematocrit 37.5 % (36.0-47.0); Hemoglobin 11.6 g/dL (12.0-16.0); Mean Corpuscular Hemoglobin 32.8 pg (27.0-31.0); Mean Corpuscular Volume 105.7 fl (78.0-98.0); Mean Platelet Volume 6.8 fL (7.4-10.4); Platelet Count 272 10x3/uL (130-400); RBC Distribution Width 14.4 % (11.5-14.5); Red Blood Cell (RBC) Count 3.54 mill/uL (4.20-5.40); White Blood Cell (WBC) Count 9.5 10x3/uL (4.8-10.8)
[2023-10-15 11:48] LABS: ALT (SGPT) 10 U/L (8-55); AST (SGOT) 13 U/L (5-34); Albumin 4.1 g/dL (3.4-4.8); Alkaline Phosphatase 64 U/L (40-110); Anion Gap 14 mmol/L (10-20); BUN (Urea Nitrogen) 45 mg/dL (9.8-20.1); Bilirubin, Total 0.4 mg/dL (0.2-1.2); Calc. Creatinine Clearance 0 mL/min (70-130); Calcium 8.8 mg/dL (7.8-10.44); Carbon Dioxide 15 mmol/L (23-31); Chloride 114 mmol/L (98-107); Estimated GFR 25; Globulin 3.8 g/dL (2.4-3.5); Glucose 101 mg/dL (83-110); Potassium 4.6 mmol/L (3.5-5.1); Protein, Total 7.9 g/dL (5.8-8.1); Sodium 138 mmol/L (136-145)
[2023-10-15 12:01] LABS: Macrocytosis SLIGHT = 6-15 cells (100X) (0-5/hpf)
== END 2023-10-15 13:50 | disposition home or self-care (01) ==
LOC: MADERS 10:34
DX: L03.213 Periorbital cellulitis (principal); H10.9 Unspecified conjunctivitis; E11.22 Type 2 diabetes mellitus with diabetic chronic kidney disease; N18.9 Chronic kidney disease, unspecified; I13.0 Hypertensive heart and chronic kidney disease with heart failure and stage 1 through stage 4 chronic kidney disease, or unspecified chronic kidney disease; I50.9 Heart failure, unspecified; E78.00 Pure hypercholesterolemia, unspecified; Z87.891 Personal history of nicotine dependence; Z79.899 Other long term (current) drug therapy
CPT/HCPCS: 36415; 70481; 80053; 83605; 85025; 87040; 94760; Q9967

== ENCOUNTER 2024-04-11 21:06 | Emergency (ER) | payer MEDICARE ==
[2024-04-11] MEDS ORDERED: diphenhydrAMINE 25 MG CAP ONE (23:20)
[2024-04-11] MEDS ORDERED: methylPREDNISolone Sod Succ/PF 125 MG/2 ML VIAL ONE (23:20)
[2024-04-11] MEDS ORDERED: Clindamycin/D5W 600 mg/50 ml Premix Bag ONE (23:20)
[2024-04-11 23:22] LABS: Anisocytosis SLIGHT = 6-15 cells (100X) (0-5/hpf); Eosinophils 3 % (0-10); Hematocrit 35.3 % (36.0-47.0); Hemoglobin 9.9 g/dL (12.0-16.0); Lymphocytes 32 % (21-51); MDiff Complete? YES; Macrocytosis SLIGHT = 6-15 cells (100X) (0-5/hpf); Mean Corpuscular HGB CONC 27.9 g/dL (32.0-36.0); Mean Corpuscular Hemoglobin 30.2 pg (27.0-31.0); Mean Corpuscular Volume 108.2 fl (78.0-98.0); Mean Platelet Volume 4.6 fL (7.4-10.4); Monocytes 5 % (0-10); Neutrophil 60 % (42-75); Platelet Adequacy Comment Appears Adequate; Platelet Count 373 10x3/uL (130-400); RBC Distribution Width 13.6 % (11.5-14.5); Red Blood Cell (RBC) Count 3.26 mill/uL (4.20-5.40); White Blood Cell (WBC) Count 6.9 10x3/uL (4.8-10.8)
[2024-04-11 23:31] LABS: ALT (SGPT) 7 U/L (8-55); AST (SGOT) 12 U/L (5-34); Albumin 3.1 g/dL (3.4-4.8); Alkaline Phosphatase 62 U/L (40-110); Anion Gap 15 mmol/L (10-20); BUN (Urea Nitrogen) 49 mg/dL (9.8-20.1); Bilirubin, Total 0.2 mg/dL (0.2-1.2); Calc. Creatinine Clearance 0 mL/min (70-130); Calcium 8.7 mg/dL (7.8-10.44); Carbon Dioxide 13 mmol/L (23-31); Chloride 116 mmol/L (98-107); Estimated GFR 28; Globulin 4.1 g/dL (2.4-3.5); Glucose 88 mg/dL (83-110); Potassium 5.1 mmol/L (3.5-5.1); Protein, Total 7.2 g/dL (5.8-8.1); Sodium 139 mmol/L (136-145)
[2024-04-12] MEDS ORDERED: Sodium Chloride 0.9% 1,000 ML ONE
[2024-04-12 00:03] LABS: Base Excess-Venous -12.6 mmol/L (-2.0 to 3.0); Bicarbonate (HCO3v) 15.6 mmol/L (22.0-28.0); CO2 Tension (PvCO2) 44.1 mmHg (42.0-51.0); Calcium, Ionized 1.25 mmol/L (1.15-1.33); Chloride 117 mmol/L (98-107); Hemoglobin - Calc 10.6 g/dL (12.0-16.0); Potassium 5.2 mmol/L (3.5-5.1); Sodium 139 mmol/L (138-145); vO2 Saturation-calc 87.8 % (60.0-85.0)
[2024-04-12] MEDS ORDERED: Sodium Bicarb 50 mEq/50 ML VIAL ONE (01:45)
== END 2024-04-12 02:25 | disposition short-term general hospital (02) ==
LOC: MADERS 21:06
DX: N17.9 Acute kidney failure, unspecified (principal); T78.40XA Allergy, unspecified, initial encounter; E87.20 Acidosis, unspecified; I11.0 Hypertensive heart disease with heart failure; I50.9 Heart failure, unspecified; E11.9 Type 2 diabetes mellitus without complications; Z87.891 Personal history of nicotine dependence
CPT/HCPCS: 70486; 80053; 82330; 82803; 83605; 85025; 87070; 87205; 96365; 96375; J2930; J3490; J7030

== ENCOUNTER 2024-09-27 19:58 | Emergency (ER) | payer MEDICARE | END 2024-09-27 20:20 | disposition home or self-care (01) | LOC: MADERS 19:58 | DX: R10.9 Unspecified abdominal pain (principal); J44.9 Chronic obstructive pulmonary disease, unspecified; I11.0 Hypertensive heart disease with heart failure; I50.9 Heart failure, unspecified; E11.9 Type 2 diabetes mellitus without complications; E78.5 Hyperlipidemia, unspecified; Z87.891 Personal history of nicotine dependence | CPT/HCPCS: 99283 ==

== ENCOUNTER 2025-06-23 16:30 | Outpatient (CLI) | payer MEDICARE ==
[2025-06-23 17:28] LABS: ALT (SGPT) Less than 4 U/L (Less than 34); AST (SGOT) 15 U/L (11-34); Albumin 3.7 g/dL (3.1-4.5); Alkaline Phosphatase 55 U/L (40-110); Anion Gap 16 mmol/L (10-20); BUN (Urea Nitrogen) 28 mg/dL (9.8-20.1); Bilirubin, Total 0.4 mg/dL (0.3-1.2); Calc. Creatinine Clearance 0 mL/min (70-130); Calcium 8.9 mg/dL (7.8-10.44); Carbon Dioxide 18 mmol/L (23-31); Cardiac Risk 3.4 (Less than 4.5); Chloride 113 mmol/L (98-107); Cholesterol 179 mg/dl (< 200 Desired); Globulin 4.2 g/dL (2.4-3.5); Glucose 100 mg/dL (83-110); HDL Cholesterol 52 mg/dL (>60 Neg Risk); LDL Cholesterol, Calculated 110 mg/dL; Potassium 3.8 mmol/L (3.5-5.1); Sodium 143 mmol/L (136-145); Triglycerides 85 mg/dL (Less than 150)
[2025-06-23 17:41] LABS: #Basophils 0.0 thou/uL (0.0-0.2); #Eosinophils 0.2 thou/uL (0.0-0.7); #Lymphocytes 1.3 thou/uL (1.20-3.40); #Monocytes 0.5 thou/uL (0.11-0.59); #Neutrophils 3.5 thou/uL (1.40-6.50); %Basophils 0.7 % (0.0-1.0); %Eosinophils 3.4 % (0.0-10.0); %Lymphocytes 23.4 % (21.0-51.0); %Monocytes 8.8 % (0.0-10.0); %Neutrophils 63.6 % (42.0-75.0); Hematocrit 33.4 % (36.0-47.0); Hemoglobin 10.2 g/dL (12.0-16.0); MDiff Complete? YES; Macrocytosis SLIGHT = 6-15 cells (100X) (0-5/hpf); Mean Corpuscular Hemoglobin 32.7 pg (27.0-31.0); Mean Corpuscular Volume 107.5 fl (78.0-98.0); Platelet Adequacy Comment Appears Adequate; Platelet Count 309 10x3/uL (130-400); Red Blood Cell (RBC) Count 3.10 mill/uL (4.20-5.40); White Blood Cell (WBC) Count 5.5 10x3/uL (4.8-10.8)
[2025-06-24 12:57] LABS: Iron 47 ug/dL (50-170); Iron Binding Capacity, Total 211 mcg/dL (265-497)
== END 2025-06-23 16:31 | disposition home or self-care (01) ==
LOC: MADLAB 16:30
PROVIDERS: ATTEND Registered Nurse
DX: Z00.00 Encounter for general adult medical examination without abnormal findings (principal); I12.9 Hypertensive chronic kidney disease with stage 1 through stage 4 chronic kidney disease, or unspecified chronic kidney disease; N18.4 Chronic kidney disease, stage 4 (severe); D63.1 Anemia in chronic kidney disease; E78.5 Hyperlipidemia, unspecified; I10 Essential (primary) hypertension; Z86.39 Personal history of other endocrine, nutritional and metabolic disease
CPT/HCPCS: 36415; 80053; 80061; 82043; 82728; 83036; 83540; 83550; 85025